=== PATIENT | female | born 1965 | race Caucasian/White ===

== ENCOUNTER 2016-11-21 12:12 | Emergency (ER) | payer MEDICARE ==
[2015-08-22 12:47] VITALS: BMI 31.3
[~2016-11-21 12:12] MED LIST: AMBIEN10 MG PO; BENZONATATE200 MG PO; CHRONULAC30 ML PO; COLACE100 MG PO; DALIRESP500 MCG PO; DETROL LA2 MG PO; DYRENIUM50 MG PO; HYDROCODONE-APA1 TAB PO; IPRAT-ALBUT 0.5-3 ML UPD; LATUDA40 MG PO; LEVAQUIN500 MG PO; LOVAZA1 G PO; LOVENOX30 MG/0.3 SC; MAXZIDE 75/501 TAB PO; MUCINEX DM ER1 EAC1 PO; NEURONTIN800 MG PO; NICODERM C1 PATCH .1 TRANSDERM; NICODERM C1 PATCH .2 TRANSDERM; NICODERM C1 PATCH .3 TRANSDERM; OXYCODONE HCL5 MG PO; OXYCONTIN10 MG PO; PEPCID20 MG PO; PERCOCET 10/3251 TA1 PO; PREDNISONE20 MG PO; PRILOSEC20 MG PO; SENOKOT-S TABLE1 TAB PO; SEROQUEL25 MG PO; SINGULAIR10 MG PO; SOMA350 MG PO; STERAPRED 5MG 125 MG PO; SYMBICORT 16010.2 GM INH; TOPAMAX25 MG PO; VENTOLIN HFA18 GM INH; XANAX1 MG PO; XIFAXAN550 MG NG; XIFAXAN550 MG PO
== END 2016-11-21 15:08 | disposition home or self-care (01) ==
LOC: D.ER 12:12
DX: S41.102A Unspecified open wound of left upper arm, initial encounter (principal); W10.9XXA Fall (on) (from) unspecified stairs and steps, initial encounter; Y93.89 Activity, other specified; Y92.019 Unspecified place in single-family (private) house as the place of occurrence of the external cause; S16.1XXA Strain of muscle, fascia and tendon at neck level, initial encounter; K72.90 Hepatic failure, unspecified without coma; I10 Essential (primary) hypertension; B19.20 Unspecified viral hepatitis C without hepatic coma; R06.89 Other abnormalities of breathing; J44.9 Chronic obstructive pulmonary disease, unspecified

== ENCOUNTER 2017-08-30 16:04 | Inpatient (IN) | payer MEDICARE ==
[~2017-08-30] VITALS: Ht 149.9 cm; Wt 68.3 kg
[2017-08-30] VITALS (7 sets, daily range): BP systolic 105–136; BP diastolic 52–87; BMI 32.0
[2017-08-30 16:57] LABS: WBC 30.2 10x3/uL (4.8-10.8)
[2017-08-30 16:58] LABS: HEMATOCRIT 40.2 % (36.0-48.0); HEMOGLOBIN 12.3 g/dL (12-16); MCH 29.2 pg (26.0-34.0); MCHC 30.6 g/dL (31.0-37.0); MCV 95.5 fL (80.0-100.0); MEAN PLATELET VOLUME 12.2 fL (7.4-10.4); PLATELET COUNT 234 10x3/uL (130-400); RBC 4.21 10x6/uL (4.00-5.40); RDW 14.8 % (11.5-14.5)
[2017-08-30 17:14] LABS: ALBUMIN 3.4 g/dL (3.4-5.0); ALKALINE PHOSPHATASE 90 U/L (46-116); ALT (SGPT) 30 U/L (10-68); CALC OSMOLALITY 276 mosm/kg (275-300); CALCIUM 8.8 mg/dL (8.5-10.1); CARBON DIOXIDE 37.8 mmol/L (21.0-32.0); CHLORIDE - SERUM 95 mmol/L (98-107); CREATININE - SERUM 1.2 mg/dL (0.6-1.3); GLUCOSE 99 mg/dL (74-106); POTASSIUM - SERUM 4.4 mmol/L (3.5-5.1); PROTEIN - SERUM 7.1 g/dL (6.4-8.2); SODIUM 137 mmol/L (136-145); UREA NITROGEN 22 mg/dL (7-18); eGFR NON AFRICAN AMERICAN 50 mL/min (90-120)
[2017-08-30 17:15] LABS: APPEARANCE CLEAR (CLEAR); BILIRUBIN NEGATIVE (NEGATIVE); COLOR YELLOW (YELLOW); GLUCOSE NEGATIVE (NEGATIVE); KETONE NEGATIVE (NEGATIVE); NITRITE NEGATIVE (NEGATIVE); PROTEIN TRACE mg/dL (NEGATIVE); UROBILINOGEN NORMAL (NORMAL)
[2017-08-30 17:22] LABS: BASOPHILS 1 % (0-2); LYMPHOCYTES 4 % (15-50); MONOCYTES 4 % (2-11); NEUTROPHILS 88 % (40-80); PLATELET ESTIMATE NORMAL
[2017-08-30 17:23] LABS: STOMATOCYTES 1+
[2017-08-30 17:25] LABS: POIKILOCYTOSIS 1+; POLYCHROMASIA 1+
[2017-08-30 17:37] LABS: CREATINE KINASE 395 UL (21-215); PRO BNP 532 pg/mL (0-125)
[2017-08-30 17:38] LABS: CKMB 19.3 U/L (0.0-3.6); TROPONIN-I < 0.017 ng/mL (0.000-0.060)
[2017-08-31] VITALS (19 sets, daily range): BP systolic 101–142; BP diastolic 39–81; Ht 149.9 cm; Wt 68.3 kg
[2017-08-31 03:50] LABS: BASOPHILS 0.1 % (0-2); EOSINOPHILS 0 % (0-7); HEMATOCRIT 35.3 % (36.0-48.0); HEMOGLOBIN 10.8 g/dL (12-16); IMMATURE GRANULOCYTES 0.7 % (0-5); LYMPHOCYTES 1.4 % (15-50); MCHC 30.6 g/dL (31.0-37.0); MCV 94.6 fL (80.0-100.0); MEAN PLATELET VOLUME 11.4 fL (7.4-10.4); MONOCYTES 0.4 % (2-11); NEUTROPHILS 97.4 % (40-80); PLATELET COUNT 208 10x3/uL (130-400); RBC 3.73 10x6/uL (4.00-5.40); RDW 14.9 % (11.5-14.5); WBC 27.9 10x3/uL (4.8-10.8)
[2017-08-31 04:00] LABS: ANION GAP 12.3 mmol/L (8-16); CALCIUM 9.2 mg/dL (8.5-10.1); CARBON DIOXIDE 35.2 mmol/L (21.0-32.0); CREATININE - SERUM 1.2 mg/dL (0.6-1.3); POTASSIUM - SERUM 4.5 mmol/L (3.5-5.1)
[2017-09-01 07:51] VITALS: BP 139/68
[2017-09-01 09:48] LABS: BASOPHILS 0 % (0-2); EOSINOPHILS 0 % (0-7); HEMATOCRIT 32.6 % (36.0-48.0); HEMOGLOBIN 10.2 g/dL (12-16); IMMATURE GRANULOCYTES 0.3 % (0-5); LYMPHOCYTES 2.1 % (15-50); MCH 28.8 pg (26.0-34.0); MCHC 31.3 g/dL (31.0-37.0); MEAN PLATELET VOLUME 11.4 fL (7.4-10.4); NEUTROPHILS 92.6 % (40-80); PLATELET COUNT 226 10x3/uL (130-400); RBC 3.54 10x6/uL (4.00-5.40); RDW 15.2 % (11.5-14.5)
[2017-09-01 09:50] LABS: WBC 17.4 10x3/uL (4.8-10.8)
[2017-09-01 09:51] LABS: MCV 92.1 fL (80.0-100.0)
[2017-09-01 10:11] LABS: ALBUMIN 2.8 g/dL (3.4-5.0); ANION GAP 10.4 mmol/L (8-16); BILIRUBIN - TOTAL 0.22 mg/dL (0.2-1.3); CALCIUM 9.3 mg/dL (8.5-10.1); CARBON DIOXIDE 35.1 mmol/L (21.0-32.0); CREATININE - SERUM 1.1 mg/dL (0.6-1.3)
[2017-09-01 10:17] LABS: POTASSIUM - SERUM 3.5 mmol/L (3.5-5.1)
[2017-09-01 16:28] VITALS: BP 111/61
[2017-09-01 19:40] VITALS: BP 103/65
[2017-09-01 23:30] VITALS: BP 124/73
[2017-09-02 04:35] VITALS: BP 129/82
[2017-09-02 07:21] LABS: BASOPHILS 0 % (0-2); EOSINOPHILS 0.1 % (0-7); HEMATOCRIT 32.1 % (36.0-48.0); IMMATURE GRANULOCYTES 0.3 % (0-5); LYMPHOCYTES 10.3 % (15-50); MCH 28.7 pg (26.0-34.0); MCHC 31.2 g/dL (31.0-37.0); MCV 92.2 fL (80.0-100.0); MEAN PLATELET VOLUME 11.2 fL (7.4-10.4); MONOCYTES 7.1 % (2-11); NEUTROPHILS 82.2 % (40-80); PLATELET COUNT 198 10x3/uL (130-400); RBC 3.48 10x6/uL (4.00-5.40); RDW 15.5 % (11.5-14.5)
[2017-09-02 07:33] LABS: WBC 11.8 10x3/uL (4.8-10.8)
[2017-09-02 07:48] LABS: ALBUMIN 2.7 g/dL (3.4-5.0); BILIRUBIN - TOTAL 0.18 mg/dL (0.2-1.3); CALCIUM 9.1 mg/dL (8.5-10.1); CARBON DIOXIDE 34.1 mmol/L (21.0-32.0); CREATININE - SERUM 1.1 mg/dL (0.6-1.3); POTASSIUM - SERUM 3.1 mmol/L (3.5-5.1); PROTEIN - SERUM 6.4 g/dL (6.4-8.2)
[2017-09-02 09:08] VITALS: BP 110/72
[2017-09-02 12:15] VITALS: BP 112/76
[2017-09-02 16:32] VITALS: BP 111/72
[2017-09-02 20:00] VITALS: BP 129/77
[2017-09-02 23:05] VITALS: BP 114/57
[2017-09-03 06:38] LABS: HEMATOCRIT 34.1 % (36.0-48.0); HEMOGLOBIN 10.9 g/dL (12-16); LYMPHOCYTES 7.5 % (15-50); MCH 29.1 pg (26.0-34.0); MCV 90.9 fL (80.0-100.0); MEAN PLATELET VOLUME 10.5 fL (7.4-10.4); NEUTROPHILS 90.5 % (40-80); PLATELET COUNT 182 10x3/uL (130-400); RBC 3.75 10x6/uL (4.00-5.40); RDW 14.6 % (11.5-14.5)
[2017-09-03 06:43] LABS: WBC 5.6 10x3/uL (4.8-10.8)
[2017-09-03 06:46] LABS: ALBUMIN 2.9 g/dL (3.4-5.0); ANION GAP 11.7 mmol/L (8-16); BILIRUBIN - TOTAL 0.2 mg/dL (0.2-1.3); CARBON DIOXIDE 33.8 mmol/L (21.0-32.0); PROTEIN - SERUM 6.3 g/dL (6.4-8.2)
[2017-09-03 06:47] LABS: POTASSIUM - SERUM 4.5 mmol/L (3.5-5.1)
[2017-09-03 08:00] VITALS: BP 149/069
[2017-09-03 12:00] VITALS: BP 120/071
[2017-09-03 16:00] VITALS: BP 134/072
[2017-09-03 21:48] VITALS: BP 114/68
[2017-09-04 00:50] VITALS: BP 112/54
[2017-09-04 05:34] VITALS: BP 114/55
[2017-09-04 06:01] LABS: BASOPHILS 0 % (0-2); EOSINOPHILS 0 % (0-7); HEMATOCRIT 37.3 % (36.0-48.0); HEMOGLOBIN 11.4 g/dL (12-16); IMMATURE GRANULOCYTES 0.7 % (0-5); LYMPHOCYTES 8.2 % (15-50); MCH 28.3 pg (26.0-34.0); MCHC 30.6 g/dL (31.0-37.0); MCV 92.6 fL (80.0-100.0); MEAN PLATELET VOLUME 11.7 fL (7.4-10.4); MONOCYTES 4.6 % (2-11); NEUTROPHILS 86.5 % (40-80); RBC 4.03 10x6/uL (4.00-5.40); RDW 15.1 % (11.5-14.5)
[2017-09-04 06:06] LABS: PLATELET COUNT 250 10x3/uL (130-400); WBC 8.5 10x3/uL (4.8-10.8)
[2017-09-04 06:15] LABS: ANION GAP 8.6 mmol/L (8-16); BILIRUBIN - TOTAL 0.19 mg/dL (0.2-1.3); CALCIUM 9.7 mg/dL (8.5-10.1); CARBON DIOXIDE 35.5 mmol/L (21.0-32.0); POTASSIUM - SERUM 4.1 mmol/L (3.5-5.1); PROTEIN - SERUM 7.1 g/dL (6.4-8.2)
[2017-09-04 08:25] VITALS: BP 138/79
[2017-09-04 12:14] VITALS: BP 122/75
[2017-09-04] MEDS ORDERED: FLUTICASONE PRO16 GM NASAL (14:32)
[2017-09-04] MEDS ORDERED: PREDNISONE10 MG PO (14:33)
[2017-09-04] MEDS ORDERED: SPIRIVA18 MCG INH (14:35)
[2017-09-04 16:25] VITALS: BP 130/78
== END 2017-09-04 17:18 | disposition home or self-care (01) | DRG 189 ==
LOC: D.ER 16:04 → D.ICU 18:25 → D.WS 08-31 19:10 → D.M3 09-02 19:05
PROVIDERS: Emergency Medicine; Family Medicine
PROC: 5A09457 Assistance with Respiratory Ventilation, 24-96 Consecutive Hours, Continuous Positive Airway Pressure (ICD-10-PCS; principal; 2017-08-30)
DX: J96.91 Respiratory failure, unspecified with hypoxia (principal); G93.40 Encephalopathy, unspecified; J44.0 Chronic obstructive pulmonary disease with (acute) lower respiratory infection; J44.1 Chronic obstructive pulmonary disease with (acute) exacerbation; J20.9 Acute bronchitis, unspecified; J31.0 Chronic rhinitis; Z72.0 Tobacco use

== ENCOUNTER 2017-10-21 08:36 | Inpatient (IN) | payer MEDICARE ==
[~2017-10-21] VITALS: Ht 149.9 cm; Wt 62.0 kg
[2017-10-21] VITALS (7 sets, daily range): BP systolic 130–145; BP diastolic 75–92; BMI 27.8
[~2017-10-21 08:36] MED LIST changes: +FLUTICASONE PRO16 GM NASAL; +PREDNISONE10 MG PO; +SPIRIVA18 MCG INH
[2017-10-21 13:28] LABS: BASOPHILS 0.1 % (0-2); EOSINOPHILS 0.1 % (0-7); HEMATOCRIT 37.7 % (36.0-48.0); HEMOGLOBIN 11.2 g/dL (12-16); IMMATURE GRANULOCYTES 0.3 % (0-5); LYMPHOCYTES 7.8 % (15-50); MCH 27.9 pg (26.0-34.0); MCHC 29.7 g/dL (31.0-37.0); MCV 93.8 fL (80.0-100.0); MEAN PLATELET VOLUME 10.8 fL (7.4-10.4); MONOCYTES 7.4 % (2-11); NEUTROPHILS 84.3 % (40-80); PLATELET COUNT 300 10x3/uL (130-400); RBC 4.02 10x6/uL (4.00-5.40); RDW 14.7 % (11.5-14.5); WBC 15.1 10x3/uL (4.8-10.8)
[2017-10-21 14:36] LABS: ALBUMIN 3.6 g/dL (3.4-5.0); ALKALINE PHOSPHATASE 75 U/L (46-116); ALT (SGPT) 42 U/L (10-68); BILIRUBIN - TOTAL 0.16 mg/dL (0.2-1.3); CALC OSMOLALITY 271 mosm/kg (275-300); CARBON DIOXIDE 39.9 mmol/L (21.0-32.0); CHLORIDE - SERUM 93 mmol/L (98-107); CREATININE - SERUM 1.2 mg/dL (0.6-1.3); GLUCOSE 96 mg/dL (74-106); POTASSIUM - SERUM 3.6 mmol/L (3.5-5.1); PROTEIN - SERUM 7.5 g/dL (6.4-8.2); SODIUM 134 mmol/L (136-145); UREA NITROGEN 25 mg/dL (7-18); eGFR NON AFRICAN AMERICAN 50 mL/min (90-120)
[2017-10-21 14:56] LABS: PRO BNP 138 pg/mL (0-125)
[2017-10-21 14:57] LABS: CREATINE KINASE 1075 UL (21-215); TROPONIN-I < 0.017 ng/mL (0.000-0.060)
[2017-10-21 14:58] LABS: CKMB 53.3 U/L (0.0-3.6)
[2017-10-22] VITALS (24 sets, daily range): BP systolic 124–168; BP diastolic 61–99; BMI 27.6
[2017-10-22 04:00] LABS: BASOPHILS 0 % (0-2); EOSINOPHILS 0 % (0-7); HEMATOCRIT 32.4 % (36.0-48.0); HEMOGLOBIN 9.8 g/dL (12-16); IMMATURE GRANULOCYTES 0.2 % (0-5); LYMPHOCYTES 4.6 % (15-50); MCH 27.5 pg (26.0-34.0); MCHC 30.2 g/dL (31.0-37.0); MEAN PLATELET VOLUME 11.3 fL (7.4-10.4); MONOCYTES 1.4 % (2-11); NEUTROPHILS 93.8 % (40-80); PLATELET COUNT 292 10x3/uL (130-400); RBC 3.57 10x6/uL (4.00-5.40); RDW 14.6 % (11.5-14.5)
[2017-10-22 04:04] LABS: WBC 8.8 10x3/uL (4.8-10.8)
[2017-10-22 04:05] LABS: MCV 90.8 fL (80.0-100.0)
[2017-10-22 04:08] LABS: ANION GAP 8.9 mmol/L (8-16); CALCIUM 9.1 mg/dL (8.5-10.1); CARBON DIOXIDE 35.7 mmol/L (21.0-32.0); CREATININE - SERUM 1.3 mg/dL (0.6-1.3); MAGNESIUM - SERUM 1.8 mg/dL (1.8-2.4); PHOSPHOROUS 3.1 mg/dL (2.5-4.9); POTASSIUM - SERUM 3.6 mmol/L (3.5-5.1)
[2017-10-23] VITALS (24 sets, daily range): BP systolic 110–143; BP diastolic 57–79
[2017-10-23 04:59] LABS: BASOPHILS 0 % (0-2); EOSINOPHILS 0 % (0-7); HEMATOCRIT 30.5 % (36.0-48.0); HEMOGLOBIN 9.4 g/dL (12-16); IMMATURE GRANULOCYTES 0.4 % (0-5); LYMPHOCYTES 6.2 % (15-50); MCH 27.5 pg (26.0-34.0); MCHC 30.8 g/dL (31.0-37.0); MCV 89.2 fL (80.0-100.0); MEAN PLATELET VOLUME 11.2 fL (7.4-10.4); NEUTROPHILS 89.4 % (40-80); PLATELET COUNT 260 10x3/uL (130-400); RBC 3.42 10x6/uL (4.00-5.40); RDW 14.7 % (11.5-14.5)
[2017-10-23 05:03] LABS: WBC 5.5 10x3/uL (4.8-10.8)
[2017-10-23 05:40] LABS: CARBON DIOXIDE 34.1 mmol/L (21.0-32.0); CHLORIDE - SERUM 92 mmol/L (98-107); GLUCOSE 139 mg/dL (74-106); MAGNESIUM - SERUM 2.1 mg/dL (1.8-2.4); POTASSIUM - SERUM 3.4 mmol/L (3.5-5.1); SODIUM 133 mmol/L (136-145); eGFR NON AFRICAN AMERICAN 61 mL/min (90-120)
[2017-10-23 05:50] LABS: CALC OSMOLALITY 276 mosm/kg (275-300); CREATINE KINASE 297 UL (21-215); PHOSPHOROUS 4.2 mg/dL (2.5-4.9); UREA NITROGEN 37 mg/dL (7-18)
[2017-10-23 05:52] LABS: CKMB 2.7 U/L (0.0-3.6)
[2017-10-24] VITALS (24 sets, daily range): BP systolic 119–173; BP diastolic 54–87
[2017-10-24 03:15] LABS: BASOPHILS 0 % (0-2); EOSINOPHILS 0 % (0-7); HEMATOCRIT 31.3 % (36.0-48.0); HEMOGLOBIN 9.8 g/dL (12-16); IMMATURE GRANULOCYTES 0.1 % (0-5); MCH 28.1 pg (26.0-34.0); MCHC 31.3 g/dL (31.0-37.0); MCV 89.7 fL (80.0-100.0); MEAN PLATELET VOLUME 11.4 fL (7.4-10.4); MONOCYTES 5.8 % (2-11); NEUTROPHILS 89.1 % (40-80); PLATELET COUNT 272 10x3/uL (130-400); RBC 3.49 10x6/uL (4.00-5.40); RDW 14.9 % (11.5-14.5)
[2017-10-24 03:17] LABS: WBC 7.3 10x3/uL (4.8-10.8)
[2017-10-24 03:23] LABS: ANION GAP 13.1 mmol/L (8-16); CALCIUM 8.6 mg/dL (8.5-10.1); CARBON DIOXIDE 33.7 mmol/L (21.0-32.0); CREATININE - SERUM 0.9 mg/dL (0.6-1.3); POTASSIUM - SERUM 3.8 mmol/L (3.5-5.1)
[2017-10-25] VITALS (24 sets, daily range): BP systolic 121–170; BP diastolic 60–89
[2017-10-25 04:16] LABS: BASOPHILS 0 % (0-2); EOSINOPHILS 0 % (0-7); HEMATOCRIT 33.7 % (36.0-48.0); HEMOGLOBIN 10.2 g/dL (12-16); IMMATURE GRANULOCYTES 0.6 % (0-5); LYMPHOCYTES 5.9 % (15-50); MCH 27.5 pg (26.0-34.0); MCHC 30.3 g/dL (31.0-37.0); MCV 90.8 fL (80.0-100.0); MEAN PLATELET VOLUME 11.4 fL (7.4-10.4); MONOCYTES 6.9 % (2-11); NEUTROPHILS 86.6 % (40-80); PLATELET COUNT 284 10x3/uL (130-400); RBC 3.71 10x6/uL (4.00-5.40); RDW 14.9 % (11.5-14.5)
[2017-10-25 04:45] LABS: CALC OSMOLALITY 290 mosm/kg (275-300); CALCIUM 8.6 mg/dL (8.5-10.1); CARBON DIOXIDE 36.1 mmol/L (21.0-32.0); CHLORIDE - SERUM 98 mmol/L (98-107); CREATININE - SERUM 0.8 mg/dL (0.6-1.3); GLUCOSE 134 mg/dL (74-106); POTASSIUM - SERUM 4.1 mmol/L (3.5-5.1); SODIUM 139 mmol/L (136-145); UREA NITROGEN 42 mg/dL (7-18); eGFR NON AFRICAN AMERICAN 79 mL/min (90-120)
[2017-10-26] VITALS (25 sets, daily range): BP systolic 127–160; BP diastolic 57–88; Ht 149.9 cm; Wt 62.0 kg
[2017-10-26 03:54] LABS: BASOPHILS 0 % (0-2); EOSINOPHILS 0 % (0-7); HEMATOCRIT 33.7 % (36.0-48.0); IMMATURE GRANULOCYTES 0.5 % (0-5); LYMPHOCYTES 5.8 % (15-50); MCH 27.1 pg (26.0-34.0); MCHC 29.7 g/dL (31.0-37.0); MCV 91.3 fL (80.0-100.0); MONOCYTES 5.9 % (2-11); NEUTROPHILS 87.8 % (40-80); PLATELET COUNT 244 10x3/uL (130-400); RBC 3.69 10x6/uL (4.00-5.40); RDW 14.9 % (11.5-14.5); WBC 10.3 10x3/uL (4.8-10.8)
[2017-10-26 04:07] LABS: CALC OSMOLALITY 292 mosm/kg (275-300); CALCIUM 8.4 mg/dL (8.5-10.1); CHLORIDE - SERUM 102 mmol/L (98-107); CREATININE - SERUM 0.7 mg/dL (0.6-1.3); GLUCOSE 143 mg/dL (74-106); POTASSIUM - SERUM 4.5 mmol/L (3.5-5.1); SODIUM 140 mmol/L (136-145); UREA NITROGEN 47 mg/dL (7-18); eGFR NON AFRICAN AMERICAN > 90 mL/min (90-120)
[2017-10-27] VITALS (25 sets, daily range): BP systolic 120–170; BP diastolic 56–85
[2017-10-27 04:49] LABS: BASOPHILS 0 % (0-2); EOSINOPHILS 0 % (0-7); HEMATOCRIT 35.4 % (36.0-48.0); HEMOGLOBIN 10.4 g/dL (12-16); IMMATURE GRANULOCYTES 0.6 % (0-5); LYMPHOCYTES 4.2 % (15-50); MCH 27.4 pg (26.0-34.0); MCHC 29.4 g/dL (31.0-37.0); MCV 93.2 fL (80.0-100.0); MONOCYTES 3.4 % (2-11); NEUTROPHILS 91.8 % (40-80); PLATELET COUNT 259 10x3/uL (130-400); RDW 14.9 % (11.5-14.5)
[2017-10-27 04:58] LABS: WBC 13.4 10x3/uL (4.8-10.8)
[2017-10-27 05:04] LABS: CALC OSMOLALITY 296 mosm/kg (275-300); CALCIUM 8.4 mg/dL (8.5-10.1); CARBON DIOXIDE 35.7 mmol/L (21.0-32.0); CHLORIDE - SERUM 103 mmol/L (98-107); CREATININE - SERUM 0.6 mg/dL (0.6-1.3); GLUCOSE 126 mg/dL (74-106); POTASSIUM - SERUM 4.3 mmol/L (3.5-5.1); SODIUM 142 mmol/L (136-145); UREA NITROGEN 46 mg/dL (7-18); eGFR NON AFRICAN AMERICAN > 90 mL/min (90-120)
[2017-10-28] VITALS (23 sets, daily range): BP systolic 126–158; BP diastolic 49–107
[2017-10-28 03:51] LABS: BASOPHILS 0 % (0-2); EOSINOPHILS 0.1 % (0-7); HEMATOCRIT 32.8 % (36.0-48.0); HEMOGLOBIN 9.7 g/dL (12-16); IMMATURE GRANULOCYTES 0.8 % (0-5); LYMPHOCYTES 5.6 % (15-50); MCH 27.2 pg (26.0-34.0); MCHC 29.6 g/dL (31.0-37.0); MCV 91.9 fL (80.0-100.0); MEAN PLATELET VOLUME 11.5 fL (7.4-10.4); MONOCYTES 3.7 % (2-11); NEUTROPHILS 89.8 % (40-80); PLATELET COUNT 246 10x3/uL (130-400); RBC 3.57 10x6/uL (4.00-5.40); RDW 14.7 % (11.5-14.5); WBC 12.6 10x3/uL (4.8-10.8)
[2017-10-28 03:56] LABS: CALC OSMOLALITY 290 mosm/kg (275-300); CALCIUM 8.5 mg/dL (8.5-10.1); CARBON DIOXIDE 36.8 mmol/L (21.0-32.0); CHLORIDE - SERUM 102 mmol/L (98-107); CREATININE - SERUM 0.6 mg/dL (0.6-1.3); GLUCOSE 127 mg/dL (74-106); POTASSIUM - SERUM 4.4 mmol/L (3.5-5.1); SODIUM 141 mmol/L (136-145); UREA NITROGEN 35 mg/dL (7-18); eGFR NON AFRICAN AMERICAN > 90 mL/min (90-120)
[2017-10-29] VITALS: BP 116/64
[2017-10-29 04:00] VITALS: BP 129/61
[2017-10-29 04:35] LABS: BASOPHILS 0 % (0-2); EOSINOPHILS 0.1 % (0-7); HEMOGLOBIN 9.9 g/dL (12-16); IMMATURE GRANULOCYTES 1.1 % (0-5); LYMPHOCYTES 7.7 % (15-50); MCH 27.4 pg (26.0-34.0); MCV 91.4 fL (80.0-100.0); MEAN PLATELET VOLUME 11.8 fL (7.4-10.4); MONOCYTES 4.8 % (2-11); NEUTROPHILS 86.3 % (40-80); PLATELET COUNT 240 10x3/uL (130-400); RBC 3.61 10x6/uL (4.00-5.40); RDW 14.7 % (11.5-14.5); WBC 10.4 10x3/uL (4.8-10.8)
[2017-10-29 04:46] LABS: CALC OSMOLALITY 288 mosm/kg (275-300); CALCIUM 8.2 mg/dL (8.5-10.1); CARBON DIOXIDE 31.9 mmol/L (21.0-32.0); CHLORIDE - SERUM 103 mmol/L (98-107); CREATININE - SERUM 0.5 mg/dL (0.6-1.3); GLUCOSE 131 mg/dL (74-106); POTASSIUM - SERUM 3.9 mmol/L (3.5-5.1); SODIUM 141 mmol/L (136-145); UREA NITROGEN 28 mg/dL (7-18); eGFR NON AFRICAN AMERICAN > 90 mL/min (90-120)
[2017-10-29 09:20] VITALS: BP 126/75
[2017-10-29 13:17] VITALS: BP 116/70
[2017-10-29 17:38] VITALS: BP 120/76
[2017-10-29 20:00] VITALS: BP 111/63
[2017-10-30] VITALS: BP 120/56
[2017-10-30 04:00] VITALS: BP 103/49
[2017-10-30 06:41] LABS: BASOPHILS 0.1 % (0-2); EOSINOPHILS 4.3 % (0-7); HEMATOCRIT 28.8 % (36.0-48.0); HEMOGLOBIN 8.7 g/dL (12-16); IMMATURE GRANULOCYTES 1.2 % (0-5); LYMPHOCYTES 20.8 % (15-50); MCH 27.2 pg (26.0-34.0); MCHC 30.2 g/dL (31.0-37.0); MONOCYTES 10.6 % (2-11); PLATELET COUNT 264 10x3/uL (130-400); RDW 14.9 % (11.5-14.5); WBC 9.8 10x3/uL (4.8-10.8)
[2017-10-30 07:07] LABS: CALC OSMOLALITY 288 mosm/kg (275-300); CARBON DIOXIDE 30.7 mmol/L (21.0-32.0); CHLORIDE - SERUM 104 mmol/L (98-107); CREATININE - SERUM 0.5 mg/dL (0.6-1.3); GLUCOSE 101 mg/dL (74-106); SODIUM 142 mmol/L (136-145); UREA NITROGEN 30 mg/dL (7-18); eGFR NON AFRICAN AMERICAN > 90 mL/min (90-120)
[2017-10-30 07:08] LABS: POTASSIUM - SERUM 3.2 mmol/L (3.5-5.1)
[2017-10-30 08:05] VITALS: BP 113/72
[2017-10-30 12:05] VITALS: BP 148/84
[2017-10-30 17:02] VITALS: BP 138/81
[2017-10-30 23:02] VITALS: BP 134/87
[2017-10-31 02:45] VITALS: BP 123/72
[2017-10-31 04:32] VITALS: BP 133/76
[2017-10-31 05:24] LABS: BASOPHILS 0.1 % (0-2); EOSINOPHILS 1.8 % (0-7); HEMATOCRIT 30.2 % (36.0-48.0); HEMOGLOBIN 9.1 g/dL (12-16); IMMATURE GRANULOCYTES 1.6 % (0-5); LYMPHOCYTES 19.3 % (15-50); MCH 27.2 pg (26.0-34.0); MCHC 30.1 g/dL (31.0-37.0); MCV 90.1 fL (80.0-100.0); MEAN PLATELET VOLUME 11.7 fL (7.4-10.4); NEUTROPHILS 66.2 % (40-80); PLATELET COUNT 274 10x3/uL (130-400); RBC 3.35 10x6/uL (4.00-5.40); RDW 15.1 % (11.5-14.5); WBC 13.1 10x3/uL (4.8-10.8)
[2017-10-31 05:26] LABS: CALC OSMOLALITY 284 mosm/kg (275-300); CALCIUM 8.9 mg/dL (8.5-10.1); CARBON DIOXIDE 31.2 mmol/L (21.0-32.0); CHLORIDE - SERUM 104 mmol/L (98-107); CREATININE - SERUM 0.6 mg/dL (0.6-1.3); GLUCOSE 113 mg/dL (74-106); POTASSIUM - SERUM 3.6 mmol/L (3.5-5.1); SODIUM 141 mmol/L (136-145); eGFR NON AFRICAN AMERICAN > 90 mL/min (90-120)
[2017-10-31 05:36] LABS: UREA NITROGEN 21 mg/dL (7-18)
[2017-10-31 08:20] VITALS: BP 127/89
[2017-10-31 15:18] VITALS: BP 114/72
[2017-10-31 22:58] VITALS: BP 152/76
[2017-11-01 01:21] VITALS: BP 145/70
[2017-11-01 05:44] VITALS: BP 154/74
[2017-11-01 07:21] LABS: BASOPHILS 0.1 % (0-2); EOSINOPHILS 1.4 % (0-7); HEMATOCRIT 29.9 % (36.0-48.0); HEMOGLOBIN 9.1 g/dL (12-16); IMMATURE GRANULOCYTES 1.6 % (0-5); LYMPHOCYTES 10.4 % (15-50); MCH 27.5 pg (26.0-34.0); MCHC 30.4 g/dL (31.0-37.0); MCV 90.3 fL (80.0-100.0); MEAN PLATELET VOLUME 11.3 fL (7.4-10.4); MONOCYTES 8.2 % (2-11); NEUTROPHILS 78.3 % (40-80); PLATELET COUNT 284 10x3/uL (130-400); RBC 3.31 10x6/uL (4.00-5.40); RDW 15.4 % (11.5-14.5); WBC 14.1 10x3/uL (4.8-10.8)
[2017-11-01 07:39] LABS: ALBUMIN 2.8 g/dL (3.4-5.0); ALKALINE PHOSPHATASE 52 U/L (46-116); ALT (SGPT) 29 U/L (10-68); BILIRUBIN - TOTAL 0.33 mg/dL (0.2-1.3); CALC OSMOLALITY 290 mosm/kg (275-300); CALCIUM 9.1 mg/dL (8.5-10.1); CARBON DIOXIDE 31.8 mmol/L (21.0-32.0); CHLORIDE - SERUM 107 mmol/L (98-107); CREATININE - SERUM 0.7 mg/dL (0.6-1.3); GLUCOSE 111 mg/dL (74-106); POTASSIUM - SERUM 3.4 mmol/L (3.5-5.1); PROTEIN - SERUM 6.1 g/dL (6.4-8.2); SODIUM 144 mmol/L (136-145); UREA NITROGEN 22 mg/dL (7-18); eGFR NON AFRICAN AMERICAN > 90 mL/min (90-120)
[2017-11-01 12:07] VITALS: BP 134/76
[2017-11-01 23:07] VITALS: BP 163/67
[2017-11-02 05:13] LABS: BASOPHILS 0.2 % (0-2); HEMATOCRIT 29.7 % (36.0-48.0); HEMOGLOBIN 8.9 g/dL (12-16); IMMATURE GRANULOCYTES 1.2 % (0-5); LYMPHOCYTES 17.6 % (15-50); MCH 27.1 pg (26.0-34.0); MCV 90.5 fL (80.0-100.0); MONOCYTES 9.7 % (2-11); NEUTROPHILS 70.3 % (40-80); PLATELET COUNT 290 10x3/uL (130-400); RBC 3.28 10x6/uL (4.00-5.40); RDW 15.6 % (11.5-14.5); WBC 12.2 10x3/uL (4.8-10.8)
[2017-11-02 05:33] LABS: ALBUMIN 2.8 g/dL (3.4-5.0); ALKALINE PHOSPHATASE 51 U/L (46-116); ALT (SGPT) 27 U/L (10-68); BILIRUBIN - TOTAL 0.33 mg/dL (0.2-1.3); CALC OSMOLALITY 286 mosm/kg (275-300); CALCIUM 9.1 mg/dL (8.5-10.1); CARBON DIOXIDE 29.2 mmol/L (21.0-32.0); CHLORIDE - SERUM 105 mmol/L (98-107); CREATININE - SERUM 0.7 mg/dL (0.6-1.3); GLUCOSE 95 mg/dL (74-106); POTASSIUM - SERUM 3.1 mmol/L (3.5-5.1); PROTEIN - SERUM 6.1 g/dL (6.4-8.2); SODIUM 143 mmol/L (136-145); UREA NITROGEN 17 mg/dL (7-18); eGFR NON AFRICAN AMERICAN > 90 mL/min (90-120)
[2017-11-02 08:11] VITALS: BP 110/48
[2017-11-02 12:21] VITALS: BP 138/75
[2017-11-02 20:38] VITALS: BP 124/71
[2017-11-03 00:44] VITALS: BP 126/74
[2017-11-03 04:30] VITALS: BP 131/76
[2017-11-03 06:38] LABS: BASOPHILS 0.1 % (0-2); EOSINOPHILS 0.8 % (0-7); HEMATOCRIT 29.2 % (36.0-48.0); HEMOGLOBIN 8.8 g/dL (12-16); IMMATURE GRANULOCYTES 0.8 % (0-5); LYMPHOCYTES 15.2 % (15-50); MCH 27.1 pg (26.0-34.0); MCHC 30.1 g/dL (31.0-37.0); MCV 89.8 fL (80.0-100.0); MEAN PLATELET VOLUME 10.7 fL (7.4-10.4); MONOCYTES 10.5 % (2-11); NEUTROPHILS 72.6 % (40-80); PLATELET COUNT 274 10x3/uL (130-400); RBC 3.25 10x6/uL (4.00-5.40); RDW 15.4 % (11.5-14.5); WBC 9.5 10x3/uL (4.8-10.8)
[2017-11-03 07:09] LABS: ALBUMIN 2.7 g/dL (3.4-5.0); ALKALINE PHOSPHATASE 48 U/L (46-116); ALT (SGPT) 25 U/L (10-68); CALC OSMOLALITY 285 mosm/kg (275-300); CALCIUM 8.5 mg/dL (8.5-10.1); CARBON DIOXIDE 28.8 mmol/L (21.0-32.0); CHLORIDE - SERUM 105 mmol/L (98-107); CREATININE - SERUM 0.7 mg/dL (0.6-1.3); GLUCOSE 95 mg/dL (74-106); PROTEIN - SERUM 5.7 g/dL (6.4-8.2); SODIUM 143 mmol/L (136-145); UREA NITROGEN 16 mg/dL (7-18); eGFR NON AFRICAN AMERICAN > 90 mL/min (90-120)
[2017-11-03 08:19] VITALS: BP 125/77
[2017-11-03 11:47] VITALS: BP 134/88
[2017-11-03] MEDS ORDERED: NEURONTIN800 MG PO (12:04)
[2017-11-03] MEDS ORDERED: PREDNISONE10 MG PO (12:07)
[2017-11-03 22:18] VITALS: BP 131/74
[2017-11-04 04:29] VITALS: BP 150/64
[2017-11-04 07:41] LABS: BASOPHILS 0.1 % (0-2); EOSINOPHILS 1.4 % (0-7); HEMATOCRIT 31.6 % (36.0-48.0); HEMOGLOBIN 9.7 g/dL (12-16); IMMATURE GRANULOCYTES 0.5 % (0-5); LYMPHOCYTES 12.5 % (15-50); MCH 27.3 pg (26.0-34.0); MCHC 30.7 g/dL (31.0-37.0); MEAN PLATELET VOLUME 11.1 fL (7.4-10.4); MONOCYTES 6.9 % (2-11); NEUTROPHILS 78.6 % (40-80); PLATELET COUNT 284 10x3/uL (130-400); RBC 3.55 10x6/uL (4.00-5.40); RDW 15.5 % (11.5-14.5)
[2017-11-04 08:00] LABS: ALBUMIN 2.8 g/dL (3.4-5.0); ALKALINE PHOSPHATASE 53 U/L (46-116); ALT (SGPT) 26 U/L (10-68); CALC OSMOLALITY 282 mosm/kg (275-300); CALCIUM 8.4 mg/dL (8.5-10.1); CARBON DIOXIDE 27.1 mmol/L (21.0-32.0); CHLORIDE - SERUM 104 mmol/L (98-107); CREATININE - SERUM 0.6 mg/dL (0.6-1.3); GLUCOSE 94 mg/dL (74-106); PROTEIN - SERUM 6.2 g/dL (6.4-8.2); SODIUM 142 mmol/L (136-145); UREA NITROGEN 13 mg/dL (7-18); eGFR NON AFRICAN AMERICAN > 90 mL/min (90-120)
[2017-11-04 09:16] VITALS: BP 129/67
== END 2017-11-04 10:52 | DRG 207 ==
LOC: D.ER 08:36 → D.ICU 14:21 → D.EDHOLD 14:21 → D.ICU 17:15 → D.MS 10-28 23:10 → D.SDCHOLD 10-29 16:08 → D.MS 10-29 16:08
PROVIDERS: Emergency Medicine; Family Medicine; Internal Medicine Nephrology; Internal Medicine Pulmonary Disease
PROC: 0RSJXZZ Reposition Right Shoulder Joint, External Approach (ICD-10-PCS; principal; 2017-10-21)
PROC: 5A1955Z Respiratory Ventilation, Greater than 96 Consecutive Hours (ICD-10-PCS; 2017-10-21)
PROC: 0T9B70Z Drainage of Bladder with Drainage Device, Via Natural or Artificial Opening (ICD-10-PCS; 2017-10-21)
PROC: 0BH17EZ Insertion of Endotracheal Airway into Trachea, Via Natural or Artificial Opening (ICD-10-PCS; 2017-10-21)
PROC: 5A09357 Assistance with Respiratory Ventilation, Less than 24 Consecutive Hours, Continuous Positive Airway Pressure (ICD-10-PCS; 2017-10-21)
DX: J96.22 Acute and chronic respiratory failure with hypercapnia (principal); J18.9 Pneumonia, unspecified organism; J44.1 Chronic obstructive pulmonary disease with (acute) exacerbation; E87.2 Acidosis; N17.9 Acute kidney failure, unspecified; J98.11 Atelectasis; J44.0 Chronic obstructive pulmonary disease with (acute) lower respiratory infection; J96.21 Acute and chronic respiratory failure with hypoxia; T41.295A Adverse effect of other general anesthetics, initial encounter; T40.2X5A Adverse effect of other opioids, initial encounter; E11.9 Type 2 diabetes mellitus without complications; K21.9 Gastro-esophageal reflux disease without esophagitis; B19.20 Unspecified viral hepatitis C without hepatic coma; Y92.239 Unspecified place in hospital as the place of occurrence of the external cause; D64.9 Anemia, unspecified; K74.60 Unspecified cirrhosis of liver; J20.9 Acute bronchitis, unspecified; M19.90 Unspecified osteoarthritis, unspecified site; I10 Essential (primary) hypertension; S43.004A Unspecified dislocation of right shoulder joint, initial encounter; W19.XXXA Unspecified fall, initial encounter; E87.6 Hypokalemia; B18.2 Chronic viral hepatitis C; Z72.0 Tobacco use

== ENCOUNTER → 2018-01-19 10:05 | Outpatient (CLI) | payer MEDICARE ==
[2017-10-26 10:40] VITALS: BMI 27.6
[~2018-01-19 10:05] MED LIST changes: +LYRICA50 MG PO; -NICODERM C1 PATCH .3 TRANSDERM; +NORCO 7.5/325 T1 TA1 PO; +ZANAFLEX4 MG PO
== END | disposition home or self-care (01) ==
LOC: D.MRI 10:00
DX: M25.511 Pain in right shoulder (principal)

== ENCOUNTER → 2018-01-21 08:16 | Outpatient (CLI) | payer MEDICARE ==
[2017-10-26 10:40] VITALS: BMI 27.6
== END | disposition home or self-care (01) ==
LOC: D.MRI 08:00
DX: M25.511 Pain in right shoulder (principal)

== ENCOUNTER 2018-02-18 09:25 | Inpatient (IN) | payer MEDICARE ==
[2018-02-17 09:54] LABS: APTT 27.4 SECONDS (22.8-39.4); INR 0.94 (0.85-1.17); PROTIME 12.2 SECONDS (11.6-15.0)
[2018-02-17 10:02] LABS: ALBUMIN 3.6 g/dL (3.4-5.0); ANION GAP 5.1 mmol/L (8-16); BILIRUBIN - TOTAL 0.32 mg/dL (0.2-1.3); CALCIUM 9.3 mg/dL (8.5-10.1); CARBON DIOXIDE 39.4 mmol/L (21.0-32.0); CREATININE - SERUM 0.9 mg/dL (0.6-1.3); POTASSIUM - SERUM 3.5 mmol/L (3.5-5.1); PROTEIN - SERUM 7.7 g/dL (6.4-8.2)
[2018-02-17 10:45] LABS: BASOPHILS 1.2 % (0-2); EOSINOPHILS 1.3 % (0-7); HEMATOCRIT 35.9 % (36.0-48.0); HEMOGLOBIN 10.9 g/dL (12-16); IMMATURE GRANULOCYTES 0.3 % (0-5); LYMPHOCYTES 23.6 % (15-50); MCH 26.3 pg (26.0-34.0); MCHC 30.4 g/dL (31.0-37.0); MCV 86.5 fL (80.0-100.0); MEAN PLATELET VOLUME 11.2 fL (7.4-10.4); MONOCYTES 9.8 % (2-11); NEUTROPHILS 63.8 % (40-80); PLATELET COUNT 329 10x3/uL (130-400); RBC 4.15 10x6/uL (4.00-5.40); RDW 16.3 % (11.5-14.5); WBC 9.2 10x3/uL (4.8-10.8)
[~2018-02-18] VITALS: Ht 149.9 cm; Wt 64.5 kg
--- NOTE | ~2018-02-18 | OP ---
PATIENT NAME: DOROTA SAHU MEDICAL RECORD: [id number] :61 LOCATION:[id number] ADMISSION DATE:02/18/18 SURGEON: RICKIE RAYMOND MD DATE OF OPERATION: 02/19/2018 PREOPERATIVE DIAGNOSIS: Chronic rotator cuff arthropathy without substantial arthritis, right shoulder. POSTOPERATIVE DIAGNOSIS: Chronic rotator cuff arthropathy without substantial arthritis, right shoulder. PROCEDURE: Superior capsular reconstruction of the right shoulder. SURGEON: Rickie Raymond MD ANESTHESIA: General. INTRAOPERATIVE COMPLICATIONS: None. SUMMARY OF PATHOLOGIC FINDINGS: The patient had a full thickness supraspinatus tendinous tear with retraction beyond the glenoid, some early marginal changes had occurred; however, the glenohumeral joint and the superior aspect of the humeral head still had good full thickness articular cartilage. OPERATIVE SUMMARY IN DETAIL: After obtaining the appropriate preoperative orthopedic surgery consent as well as anesthetic consultation, evaluation and clearance, the patient was brought to the operating room and placed on the table in supine position. After adequate general laryngeal mask airway was administered, the patient was placed in beach chair position. All pressure points were well padded. She was held firmly to the operating table using the vacuum pack suction system. Right upper extremity and shoulder were then prepped and draped in routine sterile fashion. Arm was held in Trimano arm holding device. Incision was made anterolateral approach from the acromioclavicular joint across the anterior aspect of the acromion leaving a good cuff of tissue for reapproximation. Having completed this and dissecting down, the rotator cuff tear was identified. Very large anterior prominence of the acromion was taken down with a sagittal saw, distal clavicle was excised for 1 cm. The rotator cuff was serially and sequentially mobilized, it would not reach its area of insertion on the greater tuberosity. At this point, the superior aspect of the glenoid was cleared and made ready for the dermal graft. Dermal graft was then attached to the superior aspect of the glenoid with three 2.9 PushLocks. The graft was then parachuted down nicely after it was cut to fit on the back table. The lateral aspect of the superior capsular reconstruction/dermal graft was anchored with Arthrex SpeedBridge that is double row fixation. This resulted in good stabilization of the humeral head in the most appropriate position without substantial traction on the arm itself. At this point, good reapproximation of the infraspinatus and subscapularis to the sides of the dermal graft was achieved with #2 Ethibond. The residuum of the rotator cuff was then stitched into the dorsal aspect of the dermal graft lightly to try and hold as much tension as possible. Having completed this, wound was copiously irrigated. The subdeltoid fascia was reapproximated back to the anterior aspect of the acromion with an imbricated [id number] style suture and this was repeated again over the acromioclavicular joint. Having completed this, deep deltoid was then closed with 0 Vicryl. This was followed by superficial closure of the deltoid fascia with 0 Vicryl, 0 Vicryl was then OPERATIVE REPORT [id number] DOROTA SAHU followed by 2-0 Vicryl and skin isaac for final skin closure. Sterile dressings were applied. The patient was put in a large abduction pillow splint. She was then awakened and taken to recovery room in stable condition. All final needle and sponge counts were correct. TRANSINT:[id number] Voice Confirmation ID: [id number] DOCUMENT ID: [id number] MANDI RUSHING, RICKIE SMITH at 1516 CC: [id number] DICTATION DATE: 02/22/18818 CURING SUPERVISOR: 02/22/18 1127 ADM IN [facility] [address] [place] [address]
[2018-02-18 10:53] VITALS: BP 126/75; BMI 32.4
[2018-02-18 17:59] VITALS: BP 148/78; BMI 28.7
[2018-02-18 19:48] VITALS: BP 142/69
[2018-02-18 23:39] VITALS: BP 141/65
[2018-02-19 08:10] VITALS: BP 145/70
[2018-02-19 10:00] VITALS: Ht 149.9 cm; Wt 64.5 kg
[2018-02-19 12:34] VITALS: BP 120/80
[2018-02-19 20:00] VITALS: BP 136/76
[2018-02-20] VITALS: BP 130/80
[2018-02-20 04:00] VITALS: BP 145/63
[2018-02-20 08:49] VITALS: BP 154/91
[2018-02-20 12:21] VITALS: BP 165/86
[2018-02-20 17:09] VITALS: BP 152/95
[2018-02-20 20:00] VITALS: BP 129/94
[2018-02-21 06:03] VITALS: BP 153/73
[2018-02-21 09:17] VITALS: BP 146/71
[2018-02-21 12:38] VITALS: BP 137/84
[2018-02-21 16:58] VITALS: BP 109/88
[2018-02-21 21:18] VITALS: BP 127/87
[2018-02-22 05:28] VITALS: BP 133/70
[2018-02-22 09:53] VITALS: BP 124/82
[2018-02-22 12:40] VITALS: BP 125/71
[2018-02-22 16:45] VITALS: BP 107/73
[2018-02-22 18:02] LABS: HEMATOCRIT 29.2 % (36.0-48.0); HEMOGLOBIN 9.1 g/dL (12-16); MCH 26.5 pg (26.0-34.0); MCHC 31.2 g/dL (31.0-37.0); MCV 84.9 fL (80.0-100.0); MEAN PLATELET VOLUME 11.7 fL (7.4-10.4); RBC 3.44 10x6/uL (4.00-5.40); RDW 15.9 % (11.5-14.5); WBC 8.2 10x3/uL (4.8-10.8)
[2018-02-22 21:21] VITALS: BP 114/81
[2018-02-23 00:04] VITALS: BP 115/81
[2018-02-23 04:00] VITALS: BP 133/90
[2018-02-23] MEDS ORDERED: HYDROCODONE-APA1 TAB PO (07:59)
[2018-02-23 08:37] VITALS: BP 126/71
[2018-02-23] MEDS ORDERED: PERCOCET 10/3251 TA1 PO (12:26)
[2018-02-23 12:45] VITALS: BP 110/78
[2018-02-23 16:43] VITALS: BP 137/86
== END 2018-02-23 17:24 | DRG 501 ==
LOC: D.OPS 09:25 → D.MS 09:25 → D.PAN 11:30 → D.OPS 14:45 → D.MS 17:52 → D.OPS 18:37 → D.MS 02-23 17:24
PROVIDERS: Anesthesiology; Orthopaedic Surgery
PROC: 0LU Tendons, Supplement (ICD-10-PCS; principal; 2018-02-19 10:00)
DX: M75.100 Unspecified rotator cuff tear or rupture of unspecified shoulder, not specified as traumatic (principal); D62 Acute posthemorrhagic anemia; J44.9 Chronic obstructive pulmonary disease, unspecified; K21.9 Gastro-esophageal reflux disease without esophagitis; F32.9 Major depressive disorder, single episode, unspecified; F41.9 Anxiety disorder, unspecified; B18.2 Chronic viral hepatitis C; E11.9 Type 2 diabetes mellitus without complications

== ENCOUNTER 2018-02-23 16:04 | Inpatient (IN) | payer MEDICARE ==
[~2018-02-23] VITALS: Ht 149.9 cm; Wt 59.9 kg
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
[2018-02-23 18:06] VITALS: BP 139/78; BMI 26.7
[2018-02-23 19:00] VITALS: BP 139/78
[2018-02-24 07:33] LABS: BASOPHILS 0.9 % (0-2); HEMATOCRIT 30.4 % (36.0-48.0); HEMOGLOBIN 9.1 g/dL (12-16); IMMATURE GRANULOCYTES 0.3 % (0-5); LYMPHOCYTES 21.9 % (15-50); MCH 26.1 pg (26.0-34.0); MCHC 29.9 g/dL (31.0-37.0); MEAN PLATELET VOLUME 11.1 fL (7.4-10.4); MONOCYTES 13.9 % (2-11); PLATELET COUNT 271 10x3/uL (130-400); RBC 3.49 10x6/uL (4.00-5.40); RDW 15.8 % (11.5-14.5); WBC 6.5 10x3/uL (4.8-10.8)
[2018-02-24 07:42] LABS: MCV 87.1 fL (80.0-100.0)
[2018-02-24 07:52] LABS: ANION GAP 6.5 mmol/L (8-16); CALCIUM 9.3 mg/dL (8.5-10.1); CARBON DIOXIDE 38.8 mmol/L (21.0-32.0); CREATININE - SERUM 0.9 mg/dL (0.6-1.3); POTASSIUM - SERUM 3.3 mmol/L (3.5-5.1)
[2018-02-24 08:00] VITALS: BP 145/77
[2018-02-24 09:11] VITALS: Ht 149.9 cm; Wt 59.9 kg
[2018-02-24 19:00] VITALS: BP 132/73
[2018-02-25 08:00] VITALS: BP 142/93
[2018-02-25 19:00] VITALS: BP 158/88
[2018-02-26 08:00] VITALS: BP 147/75
[2018-02-26 08:08] LABS: BASOPHILS 1.6 % (0-2); EOSINOPHILS 7.6 % (0-7); HEMATOCRIT 31.8 % (36.0-48.0); HEMOGLOBIN 9.4 g/dL (12-16); IMMATURE GRANULOCYTES 0.5 % (0-5); LYMPHOCYTES 26.6 % (15-50); MCH 25.8 pg (26.0-34.0); MCHC 29.6 g/dL (31.0-37.0); MCV 87.4 fL (80.0-100.0); MEAN PLATELET VOLUME 10.5 fL (7.4-10.4); MONOCYTES 10.9 % (2-11); NEUTROPHILS 52.8 % (40-80); PLATELET COUNT 308 10x3/uL (130-400); RBC 3.64 10x6/uL (4.00-5.40); RDW 15.5 % (11.5-14.5); WBC 5.8 10x3/uL (4.8-10.8)
[2018-02-26 08:29] LABS: ANION GAP 0.7 mmol/L (8-16); CALCIUM 9.4 mg/dL (8.5-10.1); POTASSIUM - SERUM 3.9 mmol/L (3.5-5.1)
[2018-02-26 08:31] LABS: CARBON DIOXIDE 46.2 mmol/L (21.0-32.0)
[2018-02-26 19:54] VITALS: BP 151/82
[2018-02-27 07:54] VITALS: BP 134/70
[2018-02-27 19:39] VITALS: BP 130/74
[2018-02-28 08:00] VITALS: BP 117/69
[2018-02-28 19:30] VITALS: BP 136/74
[2018-03-01 06:36] LABS: BASOPHILS 0.9 % (0-2); EOSINOPHILS 7.5 % (0-7); HEMATOCRIT 29.8 % (36.0-48.0); HEMOGLOBIN 8.8 g/dL (12-16); IMMATURE GRANULOCYTES 0.5 % (0-5); LYMPHOCYTES 28.7 % (15-50); MCH 25.7 pg (26.0-34.0); MCHC 29.5 g/dL (31.0-37.0); MCV 87.1 fL (80.0-100.0); MEAN PLATELET VOLUME 10.1 fL (7.4-10.4); NEUTROPHILS 51.4 % (40-80); PLATELET COUNT 314 10x3/uL (130-400); RBC 3.42 10x6/uL (4.00-5.40); RDW 15.5 % (11.5-14.5); WBC 5.7 10x3/uL (4.8-10.8)
[2018-03-01 07:03] LABS: ANION GAP 6.4 mmol/L (8-16); CALCIUM 9.2 mg/dL (8.5-10.1); CREATININE - SERUM 1.1 mg/dL (0.6-1.3); POTASSIUM - SERUM 3.4 mmol/L (3.5-5.1)
[2018-03-01 08:00] VITALS: BP 146/50
[2018-03-01 19:00] VITALS: BP 164/82
[2018-03-02 08:00] VITALS: BP 130/55
[2018-03-02 19:00] VITALS: BP 153/85
[2018-03-03 07:02] LABS: BASOPHILS 0.8 % (0-2); HEMATOCRIT 32.5 % (36.0-48.0); HEMOGLOBIN 9.9 g/dL (12-16); IMMATURE GRANULOCYTES 0.5 % (0-5); LYMPHOCYTES 24.7 % (15-50); MCH 26.4 pg (26.0-34.0); MCHC 30.5 g/dL (31.0-37.0); MCV 86.7 fL (80.0-100.0); MEAN PLATELET VOLUME 10.4 fL (7.4-10.4); MONOCYTES 11.8 % (2-11); NEUTROPHILS 56.2 % (40-80); PLATELET COUNT 342 10x3/uL (130-400); RBC 3.75 10x6/uL (4.00-5.40); RDW 15.6 % (11.5-14.5); WBC 6.6 10x3/uL (4.8-10.8)
[2018-03-03 08:00] VITALS: BP 117/71
[2018-03-03 19:00] VITALS: BP 128/77
[2018-03-04 08:15] VITALS: BP 128/70
[2018-03-04 19:58] VITALS: BP 128/79
[2018-03-05 06:17] LABS: BASOPHILS 0.9 % (0-2); EOSINOPHILS 5.4 % (0-7); HEMATOCRIT 28.2 % (36.0-48.0); HEMOGLOBIN 8.5 g/dL (12-16); IMMATURE GRANULOCYTES 0.3 % (0-5); LYMPHOCYTES 31.7 % (15-50); MCHC 30.1 g/dL (31.0-37.0); MCV 86.2 fL (80.0-100.0); MEAN PLATELET VOLUME 10.8 fL (7.4-10.4); MONOCYTES 10.7 % (2-11); PLATELET COUNT 302 10x3/uL (130-400); RBC 3.27 10x6/uL (4.00-5.40); RDW 15.5 % (11.5-14.5); WBC 5.8 10x3/uL (4.8-10.8)
[2018-03-05 06:59] LABS: ANION GAP 5.2 mmol/L (8-16); CALCIUM 8.7 mg/dL (8.5-10.1); CARBON DIOXIDE 37.4 mmol/L (21.0-32.0); POTASSIUM - SERUM 3.6 mmol/L (3.5-5.1)
[2018-03-05 08:00] VITALS: BP 112/68
[2018-03-05 19:00] VITALS: BP 138/85
[2018-03-06 09:24] VITALS: BP 111/56
[2018-03-06 20:30] VITALS: BP 110/83
[2018-03-07 08:45] VITALS: BP 111/59
[2018-03-07 19:45] VITALS: BP 125/74
[2018-03-08 06:31] LABS: BASOPHILS 0.8 % (0-2); EOSINOPHILS 4.2 % (0-7); HEMOGLOBIN 8.8 g/dL (12-16); IMMATURE GRANULOCYTES 0.2 % (0-5); LYMPHOCYTES 34.5 % (15-50); MCH 25.4 pg (26.0-34.0); MCHC 29.3 g/dL (31.0-37.0); MCV 86.7 fL (80.0-100.0); MONOCYTES 8.9 % (2-11); NEUTROPHILS 51.4 % (40-80); PLATELET COUNT 327 10x3/uL (130-400); RBC 3.46 10x6/uL (4.00-5.40); RDW 15.6 % (11.5-14.5); WBC 6.2 10x3/uL (4.8-10.8)
[2018-03-08 06:59] LABS: ANION GAP 6.2 mmol/L (8-16); POTASSIUM - SERUM 4.2 mmol/L (3.5-5.1)
[2018-03-08 08:00] VITALS: BP 126/82
[2018-03-08 19:00] VITALS: BP 124/70
[2018-03-09 08:00] VITALS: BP 121/68
== END 2018-03-09 11:15 | DRG 556 ==
LOC: D.REHAB 16:04
PROVIDERS: Emergency Medicine
DX: M25.511 Pain in right shoulder (principal); D62 Acute posthemorrhagic anemia; R53.81 Other malaise; J44.9 Chronic obstructive pulmonary disease, unspecified; E11.9 Type 2 diabetes mellitus without complications; Z47.89 Encounter for other orthopedic aftercare; G89.29 Other chronic pain; Z86.19 Personal history of other infectious and parasitic diseases; K21.9 Gastro-esophageal reflux disease without esophagitis; Z85.41 Personal history of malignant neoplasm of cervix uteri

== ENCOUNTER → 2018-04-02 12:04 | Outpatient (CLI) | payer MEDICARE ==
[2018-02-24 09:11] VITALS: BMI 26.6
== END | disposition home or self-care (01) ==
LOC: D.MRI 12:00
DX: M25.511 Pain in right shoulder (principal)

== ENCOUNTER → 2018-11-12 10:29 | Outpatient (CLI) | payer MEDICARE ==
[2018-10-21 09:23] VITALS: BMI 30.7
[~2018-11-12 10:29] MED LIST changes: +BUSPIRONE HCL7.5 MG PO; +CARDIZEM30 MG PO; +DOXYCYCLINE HY100 M2 PO; +FLORAJEN3 CAPS460 MG PO; +LISINOPRIL10 MG PO; +NORVASC10 MG PO; +TESSALON PERLE100 MG PO; +Tessalon Perle PO
== END | disposition home or self-care (01) ==
LOC: D.RT 11-11 07:00
PROVIDERS: ATTEND Internal Medicine Pulmonary Disease
DX: J44.9 Chronic obstructive pulmonary disease, unspecified (principal)

== ENCOUNTER → 2019-11-01 18:20 | Outpatient (CLI) | payer MEDICARE ==
[2018-10-21 09:23] VITALS: BMI 30.7
== END | disposition home or self-care (01) ==
LOC: D.LABREF 18:20
PROVIDERS: ATTEND Orthopaedic Surgery
DX: M19.011 Primary osteoarthritis, right shoulder (principal)

== ENCOUNTER 2019-12-06 11:11 | Inpatient (IN) | payer MEDICARE ==
[2019-12-06] VITALS (14 sets, daily range): BP systolic 105–152; BP diastolic 57–99; BMI 35.9
[~2019-12-06] VITALS: Ht 149.9 cm; Wt 106.2 kg
[2019-12-06 11:47] LABS: BASOPHILS 0.6 % (0-2); EOSINOPHILS 0.9 % (0-7); HEMATOCRIT 36.5 % (36.0-48.0); HEMOGLOBIN 10.4 g/dL (12-16); IMMATURE GRANULOCYTES 0.4 % (0-5); LYMPHOCYTES 14.5 % (15-50); MCH 27.6 pg (26.0-34.0); MCHC 28.5 g/dL (31.0-37.0); MCV 96.8 fL (80.0-100.0); MONOCYTES 6.1 % (2-11); NEUTROPHILS 77.5 % (40-80); PLATELET COUNT 324 10x3/uL (130-400); RBC 3.77 10x6/uL (4.00-5.40); WBC 10.3 10x3/uL (4.8-10.8)
[2019-12-06 11:57] LABS: APTT 28.4 SECONDS (22.8-39.4); INR 0.95 (0.85-1.17); PROTIME 12.6 SECONDS (11.6-15.0)
[2019-12-06 11:58] LABS: CALC OSMOLALITY 295 mosm/kg (275-300); CALCIUM 9.4 mg/dL (8.5-10.1); CARBON DIOXIDE 29.8 mmol/L (21.0-32.0); CHLORIDE - SERUM 106 mmol/L (98-107); CREATININE - SERUM 2.1 mg/dL (0.6-1.3); GLUCOSE 103 mg/dL (74-106); SODIUM 142 mmol/L (136-145); UREA NITROGEN 48 mg/dL (7-18); eGFR NON AFRICAN AMERICAN 26 mL/min (90-120)
[2019-12-06 12:16] LABS: ALBUMIN 3.8 g/dL (3.4-5.0); ALKALINE PHOSPHATASE 88 U/L (30-120); ALT (SGPT) 23 U/L (10-68); BILIRUBIN - TOTAL 0.17 mg/dL (0.2-1.3); CKMB 13.3 U/L (0.0-3.6); CREATINE KINASE 557 UL (21-215); PRO BNP 364 pg/mL (0-125); PROTEIN - SERUM 7.9 g/dL (6.4-8.2)
[2019-12-06 12:20] LABS: TROPONIN-I < 0.017 ng/mL (0.000-0.060)
[2019-12-06] MEDS ORDERED: NORVASC10 MG PO (14:39)
[2019-12-06] MEDS ORDERED: SYMBICORT 16010.2 GM INH (14:40)
[2019-12-06] MEDS ORDERED: CARDIZEM SR90 MG PO (14:41)
[2019-12-06] MEDS ORDERED: BUSPIRONE HCL7.5 MG PO (14:41)
[2019-12-06] MEDS ORDERED: NEURONTIN800 MG PO (14:42)
[2019-12-06] MEDS ORDERED: PEPCID AC20 MG PO (14:42)
[2019-12-06] MEDS ORDERED: HYDROCODON-ACE1 EAC2 PO (14:43)
[2019-12-06] MEDS ORDERED: ATROVENT 0.02%2.5 ML UPD (14:45)
[2019-12-06] MEDS ORDERED: LISINOPRIL10 MG PO (14:46)
[2019-12-06] MEDS ORDERED: METOLAZONE5 MG PO (14:46)
[2019-12-06] MEDS ORDERED: MIRALAX17 GM PO (14:46)
[2019-12-06] MEDS ORDERED: SINGULAIR10 MG PO (14:46)
[2019-12-06] MEDS ORDERED: MOVANTIK25 MG PO (14:47)
[2019-12-06] MEDS ORDERED: K-DUR20 MEQ PO (14:47)
[2019-12-06] MEDS ORDERED: ZANAFLEX4 MG PO (14:48)
[2019-12-06] MEDS ORDERED: TOPAMAX50 MG PO (14:48)
[2019-12-06] MEDS ORDERED: LYRICA50 MG PO (14:48)
[2019-12-06] MEDS ORDERED: MAXZIDE 75/501 TAB PO (14:49)
[2019-12-06] MEDS ORDERED: VENTOLIN HFA [SP8 GM INH (14:49)
[2019-12-06] MEDS ORDERED: AMBIEN10 MG PO (14:50)
--- NOTE | 2019-12-06 19:00 | NUR ---
REPORT RECEIVED FROM OFF GOING NURSE. INITIAL ASSESSMENT COMPLETED, SEE FLOWSHEET FOR DETAILS. PT IS LAYING IN BED ON THE BIPAP AT THIS TIME. NO NEEDS EXPRESSED. NO S/S OF DISTRESS. WILL CONTINUE TO MONITOR.
--- NOTE | 2019-12-06 21:00 | NUR ---
PT IS LAYING IN BED ON THE BIPAP, IT WAS NOTED THAT PT THREW UP IN THE BIPAP MASK SOME. REMOVED MASK AND CLEANED PT UP. PRN MEDICATIONS GIVEN. NO FURTHER NEEDS NOTED AT THIS TIME. NO S/S OF DISTRESS WILL CONTINUE TO MONITOR.
--- NOTE | 2019-12-06 23:00 | NUR ---
REASSESSMENT COMPLETED, SEE FLOWSHEET FOR DETAILS. PT IS LAYING IN BED WITH BIPAP ON AND EYES CLOSED. NO NEEDS VOICED AT THIS TIME. NO S/S OF DISTRESS. WILL CONTINUE TO MONITOR.
[2019-12-07] VITALS (24 sets, daily range): BP systolic 101–183; BP diastolic 5–100; Ht 149.9 cm; Wt 106.2 kg
--- NOTE | 2019-12-07 01:00 | NUR ---
PT IS LAYING IN BED WITH EYES CLOSED. NO S/S OF DISTRESS. WILL CONTINUE TO MONITOR.
--- NOTE | 2019-12-07 03:00 | NUR ---
REASSESSMENT COMPLETED, SEE FLOWSHEET FOR DETAILS. PT IS LAYING IN BED WITH EYES OPEN. PT IS EXTREMELY CONFUSED AND REPEATS HERSELF MULTIPLE TIMES. NO FURTHER NEEDS AT THIS TIME. NO S/S OF DISTRESS WILL CONTINUE TO MONITOR.
[2019-12-07 03:45] LABS: BASOPHILS 0.3 % (0-2); EOSINOPHILS 0 % (0-7); HEMATOCRIT 32.1 % (36.0-48.0); HEMOGLOBIN 9.3 g/dL (12-16); IMMATURE GRANULOCYTES 0.3 % (0-5); LYMPHOCYTES 13.4 % (15-50); MCH 27.2 pg (26.0-34.0); MEAN PLATELET VOLUME 10.2 fL (7.4-10.4); MONOCYTES 0.3 % (2-11); NEUTROPHILS 85.7 % (40-80); PLATELET COUNT 296 10x3/uL (130-400); RBC 3.42 10x6/uL (4.00-5.40); RDW 14.4 % (11.5-14.5)
[2019-12-07 03:51] LABS: MCV 93.9 fL (80.0-100.0); WBC 3.6 10x3/uL (4.8-10.8)
[2019-12-07 04:09] LABS: ANION GAP 9.4 mmol/L (8-16); BILIRUBIN - TOTAL 0.15 mg/dL (0.2-1.3); CALCIUM 8.6 mg/dL (8.5-10.1); CARBON DIOXIDE 29.6 mmol/L (21.0-32.0)
[2019-12-07 04:13] LABS: CREATININE - SERUM 1.1 mg/dL (0.6-1.3)
--- NOTE | 2019-12-07 05:00 | NUR ---
PT IS LAYING IN BED WITH EYES OPEN. PT CONTINUES TO BE VERY CONFUSED AND REPEATING SELF. NO NEEDS AT THIS TIME. NO S/S OF DISTRESS. WILL CONTINUE TO MONITOR.
[2019-12-08] VITALS (14 sets, daily range): BP systolic 116–170; BP diastolic 39–122
[2019-12-08 04:07] LABS: BASOPHILS 0 % (0-2); EOSINOPHILS 0 % (0-7); HEMATOCRIT 31.2 % (36.0-48.0); HEMOGLOBIN 9.1 g/dL (12-16); IMMATURE GRANULOCYTES 0.2 % (0-5); LYMPHOCYTES 10.3 % (15-50); MCH 26.9 pg (26.0-34.0); MCHC 29.2 g/dL (31.0-37.0); MCV 92.3 fL (80.0-100.0); MEAN PLATELET VOLUME 10.7 fL (7.4-10.4); MONOCYTES 3.5 % (2-11); PLATELET COUNT 285 10x3/uL (130-400); RBC 3.38 10x6/uL (4.00-5.40); RDW 14.3 % (11.5-14.5)
[2019-12-08 04:14] LABS: WBC 5.1 10x3/uL (4.8-10.8)
[2019-12-08 04:38] LABS: BILIRUBIN - TOTAL 0.19 mg/dL (0.2-1.3); CALCIUM 8.6 mg/dL (8.5-10.1); CARBON DIOXIDE 31.6 mmol/L (21.0-32.0); POTASSIUM - SERUM 3.6 mmol/L (3.5-5.1); PROTEIN - SERUM 6.7 g/dL (6.4-8.2)
[2019-12-08 04:43] LABS: CREATININE - SERUM 1.4 mg/dL (0.6-1.3)
--- NOTE | 2019-12-08 08:18 | NUR ---
0700 PLACED ON 3L/NC UPDRAFT INITIATED PER RT ASSESSMENT COMPLETE
--- NOTE | 2019-12-08 12:10 | NUR ---
0900 FAMILY MEMBER BROUGHT DENTURE CREAM TO er DOOR FOR PATIENT
--- NOTE | 2019-12-08 12:11 | NUR ---
1200 PATIENT DIDNT WANT WHAT WAS SERVED FOR LUNCH. NOTIFIED KITCHEN OF NEW REQUESTS
--- NOTE | 2019-12-08 14:14 | NUR ---
1100 ON PHONE WITH DAUGHTER NO C/O PAIN
--- NOTE | 2019-12-08 14:15 | NUR ---
1400 LARGE SOFT BM VIA BEDPAN
--- NOTE | 2019-12-08 14:16 | NUR ---
1400 REPORT CALLED TO [facility] II FOR ROOM 211
--- NOTE | 2019-12-08 19:15 | NUR ---
PT ALERT AND AWAKE ASSISTE WITH A FEW NEEDS BED UP A LITTLE LOWERWS AND BED IS LOCKED CALL LIGHT IS IN REACH PT IS REQUESTING HER PAIN MEDS BUT DOES NOT HAVE ANY ORDERED WILL CONSULT MD GAS PLANT WORKER
--- NOTE | 2019-12-08 22:57 | NUR ---
DCED SALINE LOCK ON LEFT HAND CATH INTACT IV WAS PAINFUL AND NO PATIENT CATH INTACT
[2019-12-09] VITALS: BP 119/74
[2019-12-09 04:00] VITALS: BP 140/69
[2019-12-09 05:02] LABS: BASOPHILS 0 % (0-2); EOSINOPHILS 0.2 % (0-7); HEMOGLOBIN 9.8 g/dL (12-16); IMMATURE GRANULOCYTES 0.3 % (0-5); LYMPHOCYTES 8.9 % (15-50); MCH 27.3 pg (26.0-34.0); MCHC 29.7 g/dL (31.0-37.0); MCV 91.9 fL (80.0-100.0); MEAN PLATELET VOLUME 10.6 fL (7.4-10.4); MONOCYTES 2.5 % (2-11); NEUTROPHILS 88.1 % (40-80); PLATELET COUNT 287 10x3/uL (130-400); RBC 3.59 10x6/uL (4.00-5.40); RDW 14.3 % (11.5-14.5); WBC 6.1 10x3/uL (4.8-10.8)
[2019-12-09 05:34] LABS: ALBUMIN 3.1 g/dL (3.4-5.0); BILIRUBIN - TOTAL 0.14 mg/dL (0.2-1.3); CALCIUM 8.8 mg/dL (8.5-10.1); CARBON DIOXIDE 30.3 mmol/L (21.0-32.0); CREATININE - SERUM 1.5 mg/dL (0.6-1.3); POTASSIUM - SERUM 3.3 mmol/L (3.5-5.1)
[2019-12-09] MEDS ORDERED: MAXZIDE 75/501 TAB PO (10:01)
[2019-12-09] MEDS ORDERED: HYDROCHLOROTHIA50 MG PO (10:01)
[2019-12-09 10:56] VITALS: BP 128/71
[2019-12-09] MEDS ORDERED: LASIX20 MG PO (12:21)
[2019-12-09] MEDS ORDERED: COLACE100 MG PO ×2 (12:23)
[2019-12-09] MEDS ORDERED: IMODIUM2 MG PO (12:23)
[2019-12-09] MEDS ORDERED: FLUTICASONE PRO16 GM NASAL (12:25)
--- NOTE | 2019-12-09 14:03 | NUR ---
Nutrition Follow-up: Ate ~75% of breakfast this AM. Diet: Cardiac Wt: 180.7# (12/06) Last BM: 12/07 per chart Labs noted: K+ 3.3, Glu 138, Alb 3.1 Meds noted: Miralax, Protonix, KDur, D5-LR @ 75, Solumedrol -Encourage PO intake and honor food preferences within diet restrictions. -Monitor wt. -RD following.
[2019-12-09 14:29] VITALS: BP 139/75
--- NOTE | 2019-12-09 17:00 | NUR ---
PT UNHOOKED OWN IV BUT UNHOOKED THE BLUE FILTER CAP TO GO TO BATHROOM AND BLOOD CAME OUT FROM IV ALL OVER BEDDING AND GOWN PT THEN PRESSED SENIOR PREMIUM AUDITOR LIGHT AND CLEANED PT UP. ASSISTED HER TO BATHROOM AND CHANGED IV FILTER AND ALCOHOLED J-LOOP. STATED TO PT TO NOT DO THAT AGAIN AND TO USE CALL LIGHT AND WAIT ON STAFF FOR SISSTQANCE TO BATHROM. PT VERBALIZED UNDERSTANDING.
[2019-12-09 18:29] VITALS: BP 142/78
[2019-12-09 21:20] VITALS: BP 148/71
--- NOTE | 2019-12-09 23:18 | NUR ---
INITIALROUNDS COMPLETED AT 191 HRS. ASSISTED PT TO BR. VOIDED MODERATE AMOUNT OF URINE AND HAD A SMALL SOFT BM. ASSISTED BACK TO BED. PT VERY SOB WITH ACTIVITY. ASSESSMENT COMPLETED AT 1954 HRS. O2 3LNC. VSS. ALERT AND ORIENTED TO PERSON, PLACE AND TIME. COBB. IV TO LFA WITH D5LR AT 75CC/HR. IV PATENT. LUNGS DIMINISHED IN BASES BILAT. ALERT AND ORIENTED TO PERSON, PLACE AND TIME. COBB. PALPABLE PERIPHERAL PULSES. PM MEDS GIVEN INCLUDING NORCO FOR CHRONIC BACK PAIN. PT CURRENTLY RSTING WITH EYES CLOSED. RESP EVEN AND AND REGULAR. AWAITING RT TO PLACE PT OF BIPAP. SR UP X2, CALL LIGHT WITHIN REACH.
--- NOTE | 2019-12-10 00:21 | NUR ---
PT RESTING WITH EYES CLOSED. RESP EVEN AND REGULAR. SR UP X2, CALL LIGHT WITHIN REACH.
--- NOTE | 2019-12-10 02:15 | NUR ---
PT RESTING WITH EYES CLOSED. RESP EVEN AND REGULAR. SR UP X2, CALL LIGHT WITHIN REACH.
--- NOTE | 2019-12-10 04:14 | NUR ---
ASSISTED PT TO BR. VOIDED MODERTE AMOUNT OF URINE AND HAD SMALL BM. ASSISTED BACK TO BED. PT VERY SOB ON EXERTION. BIPAP PLACED BACK ON PT AND 02 3LNC REMOVED. SR UP X2,CALL LIGHT WITHIN REACH.
[2019-12-10 04:43] VITALS: BP 177/85
[2019-12-10 05:11] LABS: BASOPHILS 0 % (0-2); EOSINOPHILS 0 % (0-7); HEMATOCRIT 33.2 % (36.0-48.0); HEMOGLOBIN 9.9 g/dL (12-16); IMMATURE GRANULOCYTES 0.9 % (0-5); LYMPHOCYTES 7.7 % (15-50); MCH 27.5 pg (26.0-34.0); MCHC 29.8 g/dL (31.0-37.0); MCV 92.2 fL (80.0-100.0); MEAN PLATELET VOLUME 10.7 fL (7.4-10.4); MONOCYTES 3.1 % (2-11); NEUTROPHILS 88.3 % (40-80); PLATELET COUNT 287 10x3/uL (130-400); RDW 14.3 % (11.5-14.5); WBC 5.8 10x3/uL (4.8-10.8)
[2019-12-10 05:31] LABS: ANION GAP 11.1 mmol/L (8-16); BILIRUBIN - TOTAL 0.17 mg/dL (0.2-1.3); CALCIUM 8.8 mg/dL (8.5-10.1); CARBON DIOXIDE 31.6 mmol/L (21.0-32.0); CREATININE - SERUM 1.3 mg/dL (0.6-1.3); POTASSIUM - SERUM 3.7 mmol/L (3.5-5.1); PROTEIN - SERUM 6.7 g/dL (6.4-8.2)
--- NOTE | 2019-12-10 06:31 | NUR ---
VSS THROUGHOUT NIGHT. PT STATED NORCO CONTROLLED HIS CHRONIC BACK PAIN. NEEDS MET; WILL CONTINUE TO MONITOR.
--- NOTE | 2019-12-10 07:00 | NUR ---
RECEIVED REPORT. ASSUMED CARE OF PATIENT. CALL LIGHT WITHIN REACH. PATIENT RESTING IN BED WITH EYES CLOSED, SLIGHT SNORING. NIGHT NURSE REPORTS PATIENT HAS NOT SLEPT MUCH ON PREVIOUS SHIFT. RESP EVEN AND UNLABORED. NO DISTRESS.
--- NOTE | 2019-12-10 09:20 | NUR ---
MEDICATED FOR PAIN AT THIS TIME. NO DISTRESS.
[2019-12-10 10:20] VITALS: BP 181/85
[2019-12-10 14:18] VITALS: BP 147/81
--- NOTE | 2019-12-10 15:55 | NUR ---
DR. CADET AT BEDSIDE FOR ROUNDS.
--- NOTE | 2019-12-10 15:55 | NUR ---
ASSISTED PATIENT TO AND FROM THE COMMODE TO BED. NO DISTRESS. CALL LIGHT WITHIN REACH.
[2019-12-10 16:46] VITALS: BP 141/68
--- NOTE | 2019-12-10 18:15 | NUR ---
ASSISTED PATIENT ON AND OFF OF BSC AND BACK TO BED. CALL LIGHT WITHIN REACH. NO DISTRESS.
--- NOTE | 2019-12-10 19:15 | NUR ---
RECEIVED REPORT, WILL ASSUME CARE OF PT, ASSISTED PT TO BSC AND BACK TO BED, BED IS LOW, SRX2,CALL LIGHT IN REACH, WILL CONTINUE PLAN OF CARE
[2019-12-10 20:01] VITALS: BP 147/69
--- NOTE | 2019-12-11 00:42 | NUR ---
NOTED TO BE HAVING OBSTRUCTIVE APNEAS WITH LOW EXP. VOLUMES AND SNORES SO INCREASED SETTINGS TO 16/9. NO SNORING OR APNEAS NOTED WITH NEW SETTINGS.
--- NOTE | 2019-12-11 02:42 | NUR ---
I have reviewed this patient and I concur with the Shift Assessment completed by the Licensed Practical Nurse today this shift.
[2019-12-11 04:00] VITALS: BP 168/90
[2019-12-11 05:14] LABS: BASOPHILS 0 % (0-2); EOSINOPHILS 0 % (0-7); HEMATOCRIT 33.7 % (36.0-48.0); HEMOGLOBIN 9.9 g/dL (12-16); IMMATURE GRANULOCYTES 1.1 % (0-5); LYMPHOCYTES 7.3 % (15-50); MCH 27.1 pg (26.0-34.0); MCHC 29.4 g/dL (31.0-37.0); MCV 92.3 fL (80.0-100.0); MEAN PLATELET VOLUME 10.9 fL (7.4-10.4); NEUTROPHILS 88.6 % (40-80); PLATELET COUNT 293 10x3/uL (130-400); RBC 3.65 10x6/uL (4.00-5.40); RDW 14.4 % (11.5-14.5)
[2019-12-11 05:18] LABS: WBC 7.3 10x3/uL (4.8-10.8)
[2019-12-11 05:47] LABS: ALBUMIN 3.1 g/dL (3.4-5.0); ANION GAP 9.3 mmol/L (8-16); BILIRUBIN - TOTAL 0.18 mg/dL (0.2-1.3); CALCIUM 8.7 mg/dL (8.5-10.1); CARBON DIOXIDE 32.5 mmol/L (21.0-32.0); CREATININE - SERUM 1.3 mg/dL (0.6-1.3); POTASSIUM - SERUM 3.8 mmol/L (3.5-5.1); PROTEIN - SERUM 6.6 g/dL (6.4-8.2)
--- NOTE | 2019-12-11 07:12 | NUR ---
RECEIVED REPORT. ASSUMED CARE OF PATIENT. PATIENT RESTING IN BED WITH EYES OPEN. PATIENT COMPLETED MEDNEB TX AT THIS TIME. CALL LIGHT WITHIN REACH. NO DISTRESS.
--- NOTE | 2019-12-11 08:35 | NUR ---
MEDICATED FOR PAIN AT THIS TIME. NO DISTRESS.
--- NOTE | 2019-12-11 08:39 | NUR ---
PATIENT COMPLAIN OF BURNING DURING URINATION AND PAIN. UA COLLECTED BY CLEAN CATCH.
[2019-12-11 08:54] LABS: BILIRUBIN NEGATIVE (NEGATIVE); GLUCOSE NEGATIVE (NEGATIVE); KETONE NEGATIVE (NEGATIVE); NITRITE NEGATIVE (NEGATIVE); SPECIFIC GRAVITY 1.005 (1.005-1.020); UROBILINOGEN NORMAL (NORMAL)
[2019-12-11 10:35] VITALS: BP 151/85
--- NOTE | 2019-12-11 12:17 | NUR ---
ASSISTED PATIENT OOB TO BSC AND BACK TO BED. CALL LIGHT WITHIN REACH. PATIENT CONSUMING NOON MEAL. NO DISTRESS. CALL LIGHT WITHIN REACH.
[2019-12-11 13:50] VITALS: BP 135/73
--- NOTE | 2019-12-11 14:41 | NUR ---
ASSISTED PATIENT TO BSC AND BACK TO BED. NO DISTRESS. CALL LIGHT WITHIN REACH.
--- NOTE | 2019-12-11 17:33 | NUR ---
PATIENT SITTING IN BED, CONSUMING PM MEAL. NO DISTRESS.
[2019-12-11 20:00] VITALS: BP 144/74
--- NOTE | 2019-12-11 22:53 | NUR ---
BEDTIME MEDS GIVEN. REQUESTED NORCO FOR GENERALIZED PAIN/DISCOMFORT. PT UP AND ABOUT IN HER ROOM. IVF WERE OFF. RESUMMED IVF AT 30ML/HR.
[2019-12-12] VITALS: BP 150/88
--- NOTE | 2019-12-12 03:00 | NUR ---
PT RECIEVED A COMPLETE SHOWER AND SHAMPOO AND LINEN CHANGE. HAIR PLAITED BY HEAD SCORER. PT STATES FEELING SO MUCH BETTER.
[2019-12-12 04:00] VITALS: BP 128/75
[2019-12-12 06:25] LABS: BASOPHILS 0 % (0-2); EOSINOPHILS 0 % (0-7); HEMATOCRIT 33.9 % (36.0-48.0); HEMOGLOBIN 10.2 g/dL (12-16); IMMATURE GRANULOCYTES 1.9 % (0-5); LYMPHOCYTES 5.7 % (15-50); MCH 27.5 pg (26.0-34.0); MCHC 30.1 g/dL (31.0-37.0); MCV 91.4 fL (80.0-100.0); MONOCYTES 3.6 % (2-11); NEUTROPHILS 88.8 % (40-80); PLATELET COUNT 283 10x3/uL (130-400); RBC 3.71 10x6/uL (4.00-5.40); RDW 14.2 % (11.5-14.5); WBC 8.5 10x3/uL (4.8-10.8)
--- NOTE | 2019-12-12 06:42 | NUR ---
REPORT TO ONCOMING STAFF. PT RESTING WITHOUT DISTRESS. IVF INFUSING. STAYING ON BIPAP TO SLEEP A LITTLE LONGER. CPOC.
[2019-12-12 06:49] LABS: ALBUMIN 3.2 g/dL (3.4-5.0); ANION GAP 8.6 mmol/L (8-16); BILIRUBIN - TOTAL 0.15 mg/dL (0.2-1.3); CALCIUM 8.6 mg/dL (8.5-10.1); CARBON DIOXIDE 33.6 mmol/L (21.0-32.0); CREATININE - SERUM 1.1 mg/dL (0.6-1.3); POTASSIUM - SERUM 5.2 mmol/L (3.5-5.1); PROTEIN - SERUM 6.3 g/dL (6.4-8.2)
[2019-12-12] MEDS ORDERED: AZITHROMYCIN500 MG PO (07:25)
[2019-12-12] MEDS ORDERED: OMNICEF300 MG PO (07:25)
[2019-12-12] MEDS ORDERED: PREDNISONE20 MG PO (07:27)
--- NOTE | 2019-12-12 08:10 | MORECARE ---
CASE MANAGEMENT DISCHARGE SUMMARY PATIENT: DOROTA SAHU UNIT: [id number] ADM DATE: 12/06/19 AGE: 54 : 61 SEX: F ROOM/BED: D.2110 AUTHOR: JACQUELINE RUBI PHYSICIAN: REFERRING PHYSICIAN: DARRELL SPIVEY DO DATE OF SERVICE: 12/12/19 Discharge Plan Patient Name: DOROTA SAHU Facility[facility]:[place] : 1965 Planned Disposition: Home with Home Health Anticipated Discharge Date: 12/12/19 Discharge Date: Expected LOS: 6 Initial Reviewer: [email or web address] Initial Review Date: 12/12/2019 Generated: 12/12/19 9:09 am DCPIA - Discharge Planning Initial Assessment Updated by [email or web address]: Autumn Leal on 12/12/19 8:08 am * Is the patient Alert and Oriented? Yes * How many steps to enter\exit or inside your home? 1 flight * PCP Dr. Callahan * Pharmacy [facility] * Preadmission Environment Home with Family * ADLs Partial Dependent * Partial ADLs (Assistance needed) Ambulation Bathing * Equipment Bedside Commode Nebulizer Other Oxygen Walker Wheelchair * Other Equipment Portable oxygen Trilogy * List name and contact numbers for known caregivers / representatives who currently or will assist patient after discharge: Neha Pillai DTR and [facility] - [phone] * Verbal permission to speak to the caregivers and representatives has been obtained from the patient. Yes * Community resources currently utilized Home Health Private Duty Care * Please name any agencies selected above. [facility] * Additional services required to return to the preadmission environment? No * Can the patient safely return to the preadmission environment? Yes * Has this patient been hospitalized within the prior 30 days at any hospital? No Patient Name: DOROTA SAHU Page [phone] at 0810 All edits/amendments must be made on the electronic document DICTATION DATE: 12/12/19808 ENVIRONMENTAL PROTECTION GEOLOGIST: LUCIANA 12/12/19808 RPT#: [id number] DC DATE: STATUS: ADM IN [facility] [address] [place] [address] END OF REPORT
--- NOTE | 2019-12-12 08:17 | MORECARE ---
CASE MANAGEMENT DISCHARGE SUMMARY PATIENT: DOROTA SAHU UNIT: [id number] ADM DATE: 12/06/19 AGE: 54 : 61 SEX: F ROOM/BED: D.8976 AUTHOR: JACQUELINE RUBI PHYSICIAN: REFERRING PHYSICIAN: DARRELL SPIVEY DO DATE OF SERVICE: 12/12/19 Discharge Plan Patient Name: DOROTA SAHU Facility: [facility]:[place] : 1965 Planned Disposition: Home with Home Health Anticipated Discharge Date: 12/12/19 Discharge Date: Expected LOS: 6 Initial Reviewer: [email or web address] Initial Review Date: 12/12/2019 Generated: 12/12/19 9:16 am Comments DCP- Discharge Planning Updated by [email or web address]: Autumn Leal on 12/12/19 7:[address] Patient Name: DOROTA SAHU Admission Status: ER Accout number: [id number] Admission Date: 12-06-2019 : 1965 Admission Diagnosis:SHORTNESS OF BREATH Attending: DARRELL SPIVEY Current LOS: 6 Anticipated DC Date: 12-12-2019 Planned Disposition: Home with Home Health Primary Insurance: MEDICARE A & B Discharge Planning Comments: CM met with patient to complete initial dc planning assessment. CM educated patient on the CM role and verbal consent given by patient to complete assessment. Patient lives at [address] [place] [address] with her fianc?e (Manny Lara). At discharge patient plans to return and feels this is a safe discharge. CM discussed availability of home health, rehab services, and medical equipment. Patient states she has home health and a private aide from [facility] and would like to continue this on discharge. Spoke with Lupe at [facility], they will see her tomorrow. Denies other needs. States she has a downstairs in her home, but only lives on the main floor. CM will continue to follow and will assist as needed with dc plans/needs. Retort Fireman: Autumn Leal DCPIA - Discharge Planning Initial Assessment Updated by [email or web address]: Autumn Leal on 12/12/19 8:08 am * Is the patient Alert and Oriented? Yes * How many steps to enter\exit or inside your home? 1 flight * PCP Dr. Callahan * Pharmacy [facility] * Preadmission Environment Home with Family * ADLs Partial Dependent * Partial ADLs (Assistance needed) Ambulation Bathing * Equipment Bedside Commode Nebulizer Other Oxygen Walker Wheelchair * Other Equipment Portable oxygen Trilogy * List name and contact numbers for known caregivers / representatives who currently or will assist patient after discharge: Neha Pillai DTR and [facility] - [phone] * Verbal permission to speak to the caregivers and representatives has been obtained from the patient. Yes * Community resources currently utilized Home Health Private Duty Care * Please name any agencies selected above. [facility] * Additional services required to return to the preadmission environment? No * Can the patient safely return to the preadmission environment? Yes * Has this patient been hospitalized within the prior 30 days at any hospital? No Last DP export: 12/12/19 7:10 a Patient Name: DOROTA SAHU Page [id number] at 0817 All edits/amendments must be made on the electronic document DICTATION DATE: 12/12/19815 BURLAP WORKER: LUCIANA 12/12/19815 RPT#: [id number] DC DATE: STATUS: ADM IN [facility] [address] [place] [address] END OF REPORT
--- NOTE | 2019-12-12 08:23 | MORECARE ---
CASE MANAGEMENT DISCHARGE SUMMARY PATIENT: DOROTA SAHU UNIT: [id number] ADM DATE: 12/06/19 AGE: 54 : 61 SEX: F ROOM/BED: D.5289 AUTHOR: JACQUELINE RUBI PHYSICIAN: REFERRING PHYSICIAN: DARRELL SPIVEY DO DATE OF SERVICE: 12/12/19 Discharge Plan Patient Name: DOROTA SAHU Facility: [facility]:[place] : 1965 Planned Disposition: Home with Home Health Anticipated Discharge Date: 12/12/19 Discharge Date: Expected LOS: 6 Initial Reviewer: [email or web address] Initial Review Date: 12/12/2019 Generated: 12/12/19 9:23 am Comments DCP- Discharge Planning Updated by [email or web address]: Autumn Leal on 12/12/19 7:[address] Patient Name: DOROTA SAHU Admission Status: ER Accout number: [id number] Admission Date: 12-06-2019 : 1965 Admission Diagnosis:SHORTNESS OF BREATH Attending: DARRELL SPIVEY Current LOS: 6 Anticipated DC Date: 12-12-2019 Planned Disposition: Home with Home Health Primary Insurance: MEDICARE A & B Discharge Planning Comments: CM met with patient to complete initial dc planning assessment. CM educated patient on the CM role and verbal consent given by patient to complete assessment. Patient lives at [address] [place] [address] with her fianc?e (Manny Lara). At discharge patient plans to return and feels this is a safe discharge. CM discussed availability of home health, rehab services, and medical equipment. Patient states she has home health and a private aide from [facility] and would like to continue this on discharge. Spoke with Lupe at [facility], they will see her tomorrow. Denies other needs. States she has a downstairs in her home, but only lives on the main floor. CM will continue to follow and will assist as needed with dc plans/needs. Contact Lens Blocker And Cutter: Autumn Leal DCPIA - Discharge Planning Initial Assessment Updated by [email or web address]: Autumn Leal on 12/12/19 8:08 am * Is the patient Alert and Oriented? Yes * How many steps to enter\exit or inside your home? 1 flight * PCP Dr. Callahan * Pharmacy [facility] * Preadmission Environment Home with Family * ADLs Partial Dependent * Partial ADLs (Assistance needed) Ambulation Bathing * Equipment Bedside Commode Nebulizer Other Oxygen Walker Wheelchair * Other Equipment Portable oxygen Trilogy * List name and contact numbers for known caregivers / representatives who currently or will assist patient after discharge: Neha Pillai DTR and [facility] - [phone] * Verbal permission to speak to the caregivers and representatives has been obtained from the patient. Yes * Community resources currently utilized Home Health Private Duty Care * Please name any agencies selected above. [facility] * Additional services required to return to the preadmission environment? No * Can the patient safely return to the preadmission environment? Yes * Has this patient been hospitalized within the prior 30 days at any hospital? No External Providers External Provider: [facility] Next Contact Date: Service Request Date: Service Type: Resolution: Reviewer: Comments: Last DP export: 12/12/19 7:17 a Patient Name: DOROTA SAHU Page [id number] at 0823 All edits/amendments must be made on the electronic document DICTATION DATE: 12/12/19822 SEED LABORATORY ASSISTANT: LUCIANA 12/12/19822 RPT#: [id number] DC DATE: STATUS: ADM IN [facility] [address] [place] [address] END OF REPORT
--- NOTE | 2019-12-12 09:03 | NUR ---
AM MEDS GIVEN AT THIS TIME. PT GETTING READY TO GO HOME. DENIES ANY NEEDS AT THIS TIME. CALL LIGHT IN REACH, NAD NOTED, WILL CONTINUE TO MONITOR.
--- NOTE | 2019-12-12 09:29 | NUR ---
PROVIDED VERBAL AND WRITTEN DISCHARGE TEACHING TO PT, WHO VERBALZIED UNDERSTANDING REGARING TEACHING. D/C LT FA IV WITH CATHETER TIP INTACT. PT WILL READY FOR WHEELCHAIR.
--- NOTE | 2019-12-12 09:50 | NUR ---
PT LEFT UNIT VIA WHEELCHAIR, WITH ALL BELONGIGNS, NAD NOTED.
--- NOTE | 2019-12-13 07:38 | MORECARE ---
CASE MANAGEMENT DISCHARGE SUMMARY PATIENT: DOROTA SAHU UNIT: [id number] ADM DATE: 12/06/19 AGE: 54 : 61 SEX: F ROOM/BED: D.3405 AUTHOR: AJCQUELINE RUBI PHYSICIAN: REFERRING PHYSICIAN: DARRELL SPIVEY DO DATE OF SERVICE: 12/13/19 Discharge Plan Patient Name: DOROTA SAHU Facility: [facility]:[place] : 1965 Planned Disposition: Home with Home Health Anticipated Discharge Date: 12/12/19 Discharge Date: 12/12/2019 Expected LOS: 6 Initial Reviewer: [email or web address] Initial Review Date: 12/12/2019 Generated: 12/13/19 8:37 am Comments DCP- Discharge Planning Updated by [email or web address]: Autumn Leal on 12/12/19 7:[address] Patient Name: DOROTA SAHU Admission Status: ER Accout number: [id number] Admission Date: 12-06-2019 : 1965 Admission Diagnosis:SHORTNESS OF BREATH Attending: DARRELL SPIVEY Current LOS: 6 Anticipated DC Date: 12-12-2019 Planned Disposition: Home with Home Health Primary Insurance: MEDICARE A & B Discharge Planning Comments: CM met with patient to complete initial dc planning assessment. CM educated patient on the CM role and verbal consent given by patient to complete assessment. Patient lives at [address] [place] [address] with her fianc?e (Manny Lara). At discharge patient plans to return and feels this is a safe discharge. CM discussed availability of home health, rehab services, and medical equipment. Patient states she has home health and a private aide from [facility] and would like to continue this on discharge. Spoke with Lupe at [facility], they will see her tomorrow. Denies other needs. States she has a downstairs in her home, but only lives on the main floor. CM will continue to follow and will assist as needed with dc plans/needs. Virtual Customer Assistant: Autumn Leal DCPIA - Discharge Planning Initial Assessment Updated by [email or web address]: Autumn Leal on 12/12/19 8:08 am * Is the patient Alert and Oriented? Yes * How many steps to enter\exit or inside your home? 1 flight * PCP Dr. Callahan * Pharmacy [facility] * Preadmission Environment Home with Family * ADLs Partial Dependent * Partial ADLs (Assistance needed) Ambulation Bathing * Equipment Bedside Commode Nebulizer Other Oxygen Walker Wheelchair * Other Equipment Portable oxygen Trilogy * List name and contact numbers for known caregivers / representatives who currently or will assist patient after discharge: Neha Pillai DTR and [facility] - [phone] * Verbal permission to speak to the caregivers and representatives has been obtained from the patient. Yes * Community resources currently utilized Home Health Private Duty Care * Please name any agencies selected above. [facility] * Additional services required to return to the preadmission environment? No * Can the patient safely return to the preadmission environment? Yes * Has this patient been hospitalized within the prior 30 days at any hospital? No Coverage Notice Reviewer: [email or web address] Leal Notice Issued Date-Time: 12/12/2019 8:24 Notice Type: IM Discharge Notice Notice Delivered To: Patient Relationship to Patient: Self Field Sales Executive Name: Delivery Method: HAND - Hand Delivered Lyric Days: Prior Verbal Notification: Recipient Understood Notice: Yes Recipient Signature: Yes Med Rec Note Co-signed by Attending: Coverage Notice Comment: IMM delivered, explained, signed, given, copy placed in MR Reviewer: [id number] Leal Notice Issued Date-Time: 12/12/2019 8:24 Notice Type: Patient Choice Letter Notice Delivered To: Patient Relationship to Patient: Self Field Sales Executive Name: Delivery Method: HAND - Hand Delivered Lyric Days: Prior Verbal Notification: Recipient Understood Notice: Yes Recipient Signature: Yes Med Rec Note Co-signed by Attending: Coverage Notice Comment: NUNO for [facility] KARLA and Emery Last DP export: 12/12/19 7:23 a Patient Name: DOROTA SAHU Page [id number] at 0738 All edits/amendments must be made on the electronic document DICTATION DATE: 12/13/19736 COLLECTION SYSTEMS WORKER: LUCIANA 12/13/19736 RPT#: [id number] DC DATE:12/12/19 STATUS: DIS IN [facility] [address] [place] [address] END OF REPORT
== END 2019-12-12 09:50 | disposition home health service (06) | DRG 193 ==
LOC: D.ER 11:11 → D.ICU 13:04 → D.M2 12-08 15:01
PROVIDERS: Family Medicine; ADMIT Family Medicine; ATTEND Family Medicine
PROC: 5A09457 Assistance with Respiratory Ventilation, 24-96 Consecutive Hours, Continuous Positive Airway Pressure (ICD-10-PCS; principal; 2019-12-08)
DX: J18.9 Pneumonia, unspecified organism (principal); J96.22 Acute and chronic respiratory failure with hypercapnia; J96.21 Acute and chronic respiratory failure with hypoxia; J44.1 Chronic obstructive pulmonary disease with (acute) exacerbation; J44.0 Chronic obstructive pulmonary disease with (acute) lower respiratory infection; N17.9 Acute kidney failure, unspecified; D64.9 Anemia, unspecified; J45.909 Unspecified asthma, uncomplicated; F41.8 Other specified anxiety disorders; I10 Essential (primary) hypertension; G89.29 Other chronic pain; M54.9 Dorsalgia, unspecified; B19.20 Unspecified viral hepatitis C without hepatic coma; K21.9 Gastro-esophageal reflux disease without esophagitis; R00.0 Tachycardia, unspecified; Z87.891 Personal history of nicotine dependence